=== PATIENT | female | born 1970 | race Caucasian/White ===

== ENCOUNTER 2017-03-27 12:16 | Emergency (ER) | payer SELFPAY ==
[~2017-03-27] VITALS: Ht 160 cm; Wt 60.0 kg
[2017-03-27 12:18] VITALS: BP 186/109; PULSE 116; RESP 28; TEMP 98; O2SAT 96
--- NOTE | 2017-03-27 12:31 | PD ---
Physical Exam Date Seen by Provider: Mar 27, 2017 Time Seen by Provider: 12:28 Data Data Last Documented VS Vital Signs Date Time Temp Pulse Resp B/P Pulse Ox O2 Delivery O2 Flow Rate FiO2 03/27/17 12:18 98.0 116 28 186/109 96 Room Air [facility] Supervised Visit with MARISEL: No Narrative Course 46 YO F with complaint of 10/10 cramping bilateral pelvic pain x 3 days. + vaginal discharge. + urinary odor. --vaginal bleeding. Vitals reviewed. Awaiting bed placement. Yanelis Cedeno Mar 27, 2017 12:31
[2017-03-27] MEDS ORDERED: SODIUM CHLOR 0.9% 1000 ML INJ 1,000 ML IV SCH (13:51)
[2017-03-27] MEDS ORDERED: MORPHINE SULFATE 4 MG/ML INJ IV PUSH ONE (14:00)
[2017-03-27] MEDS ORDERED: ONDANSETRON HCL 4 MG/2 ML VIAL IVP ONE (14:00)
--- NOTE | 2017-03-27 14:02 | PD ---
HPI Chief Complaint: Abdominal Pain Time Seen by Provider: 13:58 Travel History International Travel<30 days: No Contact w/Intl Traveler<30days: No Traveled to known affect area: No History of Present Illness HPI 46 yo female here for lower abdominal pain. has had this for three days. Odor on urine. Pelvic pain bilaterally. Severe 10/10. No history of surgeries. LMP was 6 years ago. No Vaginal bleeding. No BM issues. No nausea or vomit. No chest pain. Has not seen anybody for this. No allergies. Has not taken anything for this. Denies any sexual partners or STD. She is in menopause per patient. PFSH Past Medical History ?: Not LMP: 6 years ago Menopausal: Yes Past Surgical History Section: Yes Social History Alcohol Use: Yes Tobacco Use: Yes (pack a day) Substance Use: No Allergies-Medications (Allergen,Severity, Reaction): Coded Allergies: No Known Allergies (Unverified , 03/27/17) Reported Meds & Prescriptions Reported Meds & Active Scripts Active Potassium Chloride Liq (Potassium Chloride) 40 Meq/15 Ml Soln 50 Meq PO ONCE 1 Days Tramadol (Tramadol HCl) 50 Mg Tab 50 Mg PO Q6H PRN Keflex (Cephalexin) 500 Mg Cap 500 Mg PO Q12H Flagyl (Metronidazole) 500 Mg Tab 500 Mg PO BID 7 Days Review of Systems Except as stated in HPI: all other systems reviewed are Neg Physical Exam Narrative GENERAL: SKIN: Warm and dry. HEAD: Atraumatic. Normocephalic. EYES: Pupils equal and round. No scleral icterus. No injection or drainage. ENT: No nasal bleeding or discharge. Mucous membranes pink and moist. Tongue is midline, no uvula deviation. NECK: Trachea midline. No JVD. CARDIOVASCULAR: Regular rate and rhythm. RESPIRATORY: No accessory muscle use. Clear to auscultation. Breath sounds equal bilaterally. GASTROINTESTINAL: Abdomen soft, tender in the pelvic area only, nondistended. Hepatic and splenic margins not palpable. Pelvic exam: done with female nurse present shows whitish smelly discharge with vaginal atrophy but no masses or lymphadenopathy. No cervix motion tenderness. No adnexal tenderness. MUSCULOSKELETAL: Extremities without clubbing, cyanosis, or edema. No obvious deformities. Full ROM of the upper and lower extremities bilaterally. 2+ pulses bilaterally. NEUROLOGICAL: Awake and alert. No obvious cranial nerve deficits. Motor grossly within normal limits. Five out of 5 muscle strength in the arms and legs. Normal speech. PSYCHIATRIC: Appropriate mood and affect; insight and judgment normal. Data Data Last Documented VS Vital Signs Date Time Temp Pulse Resp B/P Pulse Ox O2 Delivery O2 Flow Rate FiO2 03/27/17 12:18 98.0 116 28 186/109 96 Room Air Orders Complete Blood Count With Diff (03/27/17 13:51) Basic Metabolic Panel (Bmp) (03/27/17 13:51) Gc And Chlamydia Pcr (03/27/17 13:51) Wet Prep Profile (03/27/17 13:51) Urinalysis - C+S If Indicated (03/27/17 13:51) Iv Access Insert/Monitor (03/27/17 13:51) Ondansetron Inj (Zofran Inj) (03/27/17 14:00) Morphine Inj (Morphine Inj) (03/27/17 14:00) Sodium Chlor 0.9% 1000 Ml Inj (Ns 1000 M (03/27/17 13:51) Potassium Chloride (Kcl) (03/27/17 15:15) Potassium Chloride (Kcl) (03/27/17 15:30) Labs Laboratory Tests Test 03/27/17 14:10 White Blood Count 7.8 TH/MM3 Red Blood Count 3.70 MIL/MM3 Hemoglobin 15.6 GM/DL Hematocrit 44.8 % Mean Corpuscular Volume 121.0 FL Mean Corpuscular Hemoglobin 42.1 PG Mean Corpuscular Hemoglobin 34.8 % Concent Red Cell Distribution Width 19.1 % Platelet Count 242 TH/MM3 Mean Platelet Volume 8.6 FL Neutrophils (%) (Auto) 55.7 % Lymphocytes (%) (Auto) 28.7 % Monocytes (%) (Auto) 12.1 % Eosinophils (%) (Auto) 2.8 % Basophils (%) (Auto) 0.7 % Neutrophils # (Auto) 4.3 TH/MM3 Lymphocytes # (Auto) 2.2 TH/MM3 Monocytes # (Auto) 0.9 TH/MM3 Eosinophils # (Auto) 0.2 TH/MM3 Basophils # (Auto) 0.1 TH/MM3 CBC Comment DIFF FINAL Differential Comment Clue Cells (Wet Prep) PRESENT Vaginal Trichomonas (Wet Prep) NONE SEEN Vaginal Yeast (Wet Prep) NONE SEEN Sodium Level 140 MEQ/L Potassium Level 2.6 MEQ/L Chloride Level 97 MEQ/L Carbon Dioxide Level 36.4 MEQ/L Anion Gap 7 MEQ/L Blood Urea Nitrogen 3 MG/DL Creatinine 0.43 MG/DL Estimat Glomerular Filtration 157 ML/MIN Rate Random Glucose 119 MG/DL Calcium Level 8.6 MG/DL [facility] Medical Decision Making Medical Screen Exam Complete: Yes Emergency Medical Condition: Yes Medical Record Reviewed: Yes Interpretation(s) CBC & BMP Diagram 03/27/17 14:10 wet prep positive for clue cells UA positive for UTI Differential Diagnosis pelvic pain vs PID vs UTI vs vaginitis vs vaginal discharge vs cystitis vs pyelonephritis Narrative Course 46 yo female here for pelvic pain. Unclear etiology. Pelvic recommended. Patient agrees with labs and pelvic exam. Labs and exam shows vaginal discharge but no cervical tenderness. UTI. low potassium noted. Case was discussed in my attending who recommends replenishing here with 50 mEq of potassium by mouth as well as 50 mEq of PO potassium to take tomorrow at home. patient will be treated with flagyl and keflex for her infections. Tramadol as well for pain. She was instructed to follow up with PCP. See ED if worst. Diagnosis Primary Impression: BV (bacterial vaginosis) Additional Impressions: UTI (urinary tract infection) Qualified Code: N30.00 - Acute cystitis without hematuria Hypokalemia Patient Instructions: General Instructions, Narcotic given in the ED Additional Instructions: Take medications as prescribed. Follow-up with PCP. See ED for any worsening symptoms. Do not drink or drive while taking pain medication. Apply ice or heat as needed for pain Med/Other Pt SpecificInfo: Prescription(s) given Scripts Potassium Chloride Liq 40 Meq/15 Ml Soln50 Meq PO ONCE 1 Day Ref 0 Prov:Craig Gonsales MD 03/27/17 Tramadol 50 Mg Tab50 Mg PO Q6H PRN (PAIN) #14 TAB Ref 0 Prov:Craig Gonsales MD 03/27/17 Cephalexin (Keflex)500 Mg [id number] Mg PO Q12H #10 CAP Ref 0 Prov:Craig Gonsales MD 03/27/17 Metronidazole (Flagyl)500 Mg [id number] Mg PO BID 7 Days Ref 0 Prov:Craig Gonsales MD 03/27/17 Disposition: 01 DISCHARGE HOME Condition: Stable Eris Hall Mar 27, 2017 14:02
[2017-03-27 14:35] LABS: AUTOMATED NEUTROPHIL # 4.3 TH/MM3 (1.8-7.7); BASOPHIL # 0.1 TH/MM3 (0-0.2); BASOPHIL % 0.7 % (0.0-2.0); EOSINOPHIL # 0.2 TH/MM3 (0-0.4); EOSINOPHIL % 2.8 % (0.0-4.0); HEMATOCRIT 44.8 % (35.0-46.0); HEMO FLAGS DIFF FINAL; LYMPH % 28.7 % (9.0-44.0); LYMPHOCYTE # 2.2 TH/MM3 (1.0-4.8); MEAN CORPUSCULAR HEMOGLOBIN 42.1 PG (27.0-34.0); MEAN CORPUSCULAR HGB CONC 34.8 % (32.0-36.0); MONO % 12.1 % (0.0-8.0); NEUT % 55.7 % (16.0-70.0); PLATELET COUNT 242 TH/MM3 (150-450); RED CELL DISTRIBUTION WIDTH 19.1 % (11.6-17.2); WHITE BLOOD COUNT 7.8 TH/MM3 (4.0-11.0)
[2017-03-27 15:04] LABS: BICARBONATE 36.4 MEQ/L (21.0-32.0)
[2017-03-27] MEDS ORDERED: TRAM50TA PO (15:05)
[2017-03-27] MEDS ORDERED: METR-1 PO (15:05)
[2017-03-27] MEDS ORDERED: CEPH-460 PO (15:05)
[2017-03-27 15:10] LABS: POTASSIUM 2.6 MEQ/L (3.5-5.1)
[2017-03-27] MEDS ORDERED: POTASSIUM CHLORIDE 20 MEQ CONTROLLED RELEASE TAB PO ONE (15:15)
[2017-03-27] MEDS ORDERED: POTA10LI10 PO (15:16)
[2017-03-27] MEDS ORDERED: POTASSIUM CHLORIDE 10 MEQ CONTROLLED RELEASE TAB PO ONE (15:30)
[2017-03-27 16:18] LABS: CHLAMYDIA PCR NOT DETECTED (NOT DETECT); NEISSERIA PCR NOT DETECTED (NOT DETECT)
[2017-03-27 16:33] LABS: BACTERIA, URINE MANY /hpf; BLOOD, URINE NEG (NEG); COMMENT (UR) CULTURE INDICATED; CULTURE IF INDICATED CULTURE INDICATED; GLUCOSE,URINE NEG (NEG); HYALINE CAST, URINE 1 /lpf (RARE); KETONE, URINE NEG (NEG); MUCUS URINE FEW /lpf (OCC); NITRITE,URINE NEG (NEG); PH, URINE 7.5 (5.0-8.5); SQUAMOUS EPITHELIAL CELL URINE 1 /hpf (0-5); URINE COLOR YELLOW (YELLW/STRAW)
== END 2017-03-27 17:49 | disposition home or self-care (01) ==
LOC: NEPD 12:16
DX: N76.0 Acute vaginitis (principal); N39.0 Urinary tract infection, site not specified; B96.20 Unspecified Escherichia coli [E. coli] as the cause of diseases classified elsewhere; F17.210 Nicotine dependence, cigarettes, uncomplicated
CPT/HCPCS: 80048; 81001; 85025; 87077; 87086; 87186; 87210; 87491; 87591; 96374; 96375; 99284; J2270; J2405; J7030

== ENCOUNTER 2017-04-02 11:41 | Emergency (ER) | payer SELFPAY ==
[~2017-04-02] VITALS: Ht 160 cm; Wt 62.0 kg
[~2017-04-02 11:41] MED LIST: CEPH-460 PO; METR-1 PO; POTA10LI10 PO; TRAM50TA PO
[2017-04-02 11:44] VITALS: BP 162/101; PULSE 108; RESP 20; TEMP 98.6; O2SAT 96
--- NOTE | 2017-04-02 11:48 | PD ---
Physical Exam Time Seen by Provider: 11:46 Narrative 46yo F c/o vomiting since Thursday. Cannot keep anything down. Reports lower abd pain. Currently on antibx for UTI and bacterial vaginosis. Taking nitrofurantoin andf Flagyl. Patient seen in triage. VS reviewed. Awaiting bed placement. Data Data Last Documented VS Vital Signs Date Time Temp Pulse Resp B/P Pulse Ox O2 Delivery O2 Flow Rate FiO2 04/02/17 11:44 98.6 108 20 162/101 96 Room Air MDM Supervised Visit with MARISEL: Mar Zimmerman Apr 02, 2017 11:48
[2017-04-02 13:07] LABS: AUTOMATED NEUTROPHIL # 4.9 TH/MM3 (1.8-7.7); BASOPHIL % 0.5 % (0.0-2.0); EOSINOPHIL % 0.7 % (0.0-4.0); HEMATOCRIT 45.6 % (35.0-46.0); HEMO FLAGS DIFF FINAL; LYMPH % 15.4 % (9.0-44.0); MEAN CORPUSCULAR HEMOGLOBIN 42.3 PG (27.0-34.0); MEAN CORPUSCULAR HGB CONC 34.4 % (32.0-36.0); MONO % 5.8 % (0.0-8.0); NEUT % 77.6 % (16.0-70.0); PLATELET COUNT 107 TH/MM3 (150-450); RED BLOOD COUNT 3.71 MIL/MM3 (4.00-5.30); RED CELL DISTRIBUTION WIDTH 18.7 % (11.6-17.2); WHITE BLOOD COUNT 6.3 TH/MM3 (4.0-11.0)
[2017-04-02 13:24] LABS: ALT (GPT) 133 U/L (10-53)
[2017-04-02 13:26] LABS: ALKALINE PHOSPHATASE 261 U/L (45-117); TOTAL BILIRUBIN ADULT 3.6 MG/DL (0.2-1.0)
[2017-04-02 13:27] LABS: ANION GAP 11 MEQ/L (5-15); AST (GOT) 285 U/L (15-37); BICARBONATE 34.6 MEQ/L (21.0-32.0); BLOOD UREA NITROGEN 5 MG/DL (7-18); CHLORIDE 90 MEQ/L (98-107); GLOMERULAR FILTRATION RATE 126 ML/MIN (>89); POTASSIUM 3.8 MEQ/L (3.5-5.1); SODIUM (NA) 136 MEQ/L (136-145)
[2017-04-02 13:47] LABS: BACTERIA, URINE OCC /hpf; BLOOD, URINE NEG (NEG); COMMENT (UR) CULTURE INDICATED; CULTURE IF INDICATED CULTURE INDICATED; GLUCOSE,URINE NEG (NEG); HYALINE CAST, URINE 8 /lpf (RARE); KETONE, URINE 10 mg/dL (NEG); MUCUS URINE MANY /lpf (OCC); NITRITE,URINE NEG (NEG); SQUAMOUS EPITHELIAL CELL URINE 42 /hpf (0-5)
[2017-04-02] MEDS ORDERED: ONDANSETRON HCL 4 MG/2 ML VIAL IV PUSH ONE (14:00)
--- NOTE | 2017-04-02 14:00 | PD ---
HPI Chief Complaint: GI Complaint Time Seen by Provider: 13:49 Travel History International Travel<30 days: No Contact w/Intl Traveler<30days: No Traveled to known affect area: No History of Present Illness HPI Patient is a 46-year-old female presents emergency department for nausea vomiting and dizziness. Patient states that she was here a few days ago and started on an antibiotic for urinary tract infection, they then called her to change her antibiotics to start her on Flagyl. She states since that time she' s been having some nausea and vomiting some generalized weakness. She presents today for a repeat evaluation. She denies any fevers diarrhea blood in the emesis blood in the stool. Denies any constipation. Denies any vaginal bleeding or vaginal discharge at this time. [facility] Past Medical History Menopausal: Yes Past Surgical History Section: Yes Social History Alcohol Use: Yes Tobacco Use: Yes (pack a day) Substance Use: No Allergies-Medications (Allergen,Severity, Reaction): Coded Allergies: No Known Allergies (Unverified , 04/02/17) Reported Meds & Prescriptions Reported Meds & Active Scripts Active Roxicodone (Oxycodone HCl) 5 Mg Tab 5 Mg PO Q6H PRN Zofran Odt (Ondansetron Odt) 4 Mg Tab 4 Mg SL Q6HR PRN Tramadol (Tramadol HCl) 50 Mg Tab 50 Mg PO Q6H PRN Flagyl (Metronidazole) 500 Mg Tab 500 Mg PO BID 7 Days Review of Systems Except as stated in HPI: all other systems reviewed are Neg Physical Exam Narrative GENERAL: Well-developed well-nourished no apparent distress SKIN: Focused skin assessment warm/dry. HEAD: Atraumatic. Normocephalic. EYES: Pupils equal and round. No scleral icterus. No injection or drainage. ENT: No nasal bleeding or discharge. Mucous membranes pink and moist. NECK: Trachea midline. No JVD. CARDIOVASCULAR: Regular rate and rhythm. No murmur appreciated. RESPIRATORY: No accessory muscle use. Clear to auscultation. Breath sounds equal bilaterally. GASTROINTESTINAL: Abdomen soft, non-tender, nondistended. Hepatic and splenic margins not palpable. MUSCULOSKELETAL: No obvious deformities. No clubbing. No cyanosis. No edema. NEUROLOGICAL: Awake and alert. No obvious cranial nerve deficits. Motor grossly within normal limits. Normal speech. PSYCHIATRIC: Appropriate mood and affect; insight and judgment normal. Data Data Last Documented VS Vital Signs Date Time Temp Pulse Resp B/P Pulse Ox O2 Delivery O2 Flow Rate FiO2 04/02/17 16:06 95 20 145/92 96 Room Air 04/02/17 11:44 98.6 Orders Complete Blood Count With Diff (04/02/17 11:52) Comprehensive Metabolic Panel (04/02/17 11:52) Urinalysis - C+S If Indicated (04/02/17 11:52) Iv Access Insert/Monitor (04/02/17 11:52) Oxygen Administration (04/02/17 11:52) Oximetry (04/02/17 11:52) Lipase (04/02/17 11:52) Act Partial Throm Time (Ptt) (04/02/17 13:59) Prothrombin Time / Inr (Pt) (04/02/17 13:59) Ondansetron Inj (Zofran Inj) (04/02/17 14:00) Urine Culture (04/02/17 12:45) Ct Abd/Pel W Iv Contrast(Rout) (04/02/17 ) Ed Urine Pregnancytest Poc (04/02/17 14:42) Iohexol 350 Inj (Omnipaque 350 Inj) (04/02/17 15:28) Labs Laboratory Tests Test 04/02/17 04/02/17 12:45 14:15 White Blood Count 6.3 TH/MM3 Red Blood Count 3.71 MIL/MM3 Hemoglobin 15.7 GM/DL Hematocrit 45.6 % Mean Corpuscular Volume 123.0 FL Mean Corpuscular Hemoglobin 42.3 PG Mean Corpuscular Hemoglobin 34.4 % Concent Red Cell Distribution Width 18.7 % Platelet Count 107 TH/MM3 Mean Platelet Volume 9.2 FL Neutrophils (%) (Auto) 77.6 % Lymphocytes (%) (Auto) 15.4 % Monocytes (%) (Auto) 5.8 % Eosinophils (%) (Auto) 0.7 % Basophils (%) (Auto) 0.5 % Neutrophils # (Auto) 4.9 TH/MM3 Lymphocytes # (Auto) 1.0 TH/MM3 Monocytes # (Auto) 0.4 TH/MM3 Eosinophils # (Auto) 0.0 TH/MM3 Basophils # (Auto) 0.0 TH/MM3 CBC Comment DIFF FINAL Differential Comment Urine Color DARK-BROWN Urine Turbidity CLOUDY Urine pH 7.0 Urine Specific [place] 1.030 Urine Protein 300 mg/dL Urine Glucose (UA) NEG mg/dL Urine Ketones 10 mg/dL Urine Occult Blood NEG Urine Nitrite NEG Urine Bilirubin SMALL Urine Urobilinogen 4.0 MG/DL Urine Leukocyte Esterase MOD Urine RBC 6 /hpf Urine WBC 29 /hpf Urine Squamous Epithelial 42 /hpf Cells Urine Amorphous Sediment RARE Urine Bacteria OCC /hpf Urine Hyaline Casts 8 /lpf Urine Mucus MANY /lpf Microscopic Urinalysis Comment CULTURE INDICATED Sodium Level 136 MEQ/L Potassium Level 3.8 MEQ/L Chloride Level 90 MEQ/L Carbon Dioxide Level 34.6 MEQ/L Anion Gap 11 MEQ/L Blood Urea Nitrogen 5 MG/DL Creatinine 0.52 MG/DL Estimat Glomerular Filtration 126 ML/MIN Rate Random Glucose 89 MG/DL Calcium Level 8.6 MG/DL Total Bilirubin 3.6 MG/DL Aspartate Amino Transf 285 U/L (AST/SGOT) Alanine Aminotransferase 133 U/L (ALT/SGPT) Alkaline Phosphatase 261 U/L Total Protein 7.6 GM/DL Albumin 2.9 GM/DL Lipase 142 U/L Prothrombin Time 13.2 SEC Prothromb Time International 1.2 RATIO Ratio Activated Partial 27.3 SEC Thromboplast Time MDM Medical Decision Making Medical Screen Exam Complete: Yes Emergency Medical Condition: Yes Medical Record Reviewed: Yes Differential Diagnosis Gastritis, gastric enteritis, diverticulosis, kidney stone, urinary tract infection. Narrative Course Patient was roomed in the emergency department, review the records show that she was initially started on Keflex and this was changed to Flagyl and Cipro. This may be partly causing the patient's nausea and vomiting. Given this is second evaluation think further workup is warranted patient and labs have been ordered. Labs do show transaminitis with a minimal elevation of bilirubin. Patient adamantly denies drinking but states that she has not ever been tested for hepatitis. Given the transaminitis CAT scan was ordered on top shows normal gallbladder with no liver masses but incidentally does show a kidney stone and some mild diverticulitis. These findings were discussed with the patient and unfortunately now she has urinary tract infection a candidal infection transaminitis a kidney stone as well as diverticulitis. Referrals are made to the specialists including GI and urology and recommended the patient also established with a primary care physician or the [facility]. She appears well and in no obvious distress and is stable for discharge and outpatient workup at this time. Diagnosis Primary Impression: Diverticulitis Additional Impressions: BV (bacterial vaginosis) UTI (urinary tract infection) Kidney stone Transaminitis Referrals: Ivan Woods MD, Hassan MD [facility] Additional Instructions: No alcohol, no Tylenol and to you follow-up with a applications coordinator, also follow up with the [facility]. Med/Other Pt SpecificInfo: Prescription(s) given Scripts Oxycodone (Roxicodone)5 Mg Tab5 Mg PO Q6H PRN (PAIN) #12 TAB Ref 0 Prov:Oz Emmanuel MD 04/02/17 Ondansetron Odt (Zofran Odt)4 Mg Tab4 Mg SL Q6HR PRN (Nausea/Vomiting) #30 TAB Ref 0 Prov:Oz Emmanuel MD 04/02/17 Disposition: 01 DISCHARGE HOME Condition: Stable Oz Emmanuel MD Apr 02, 2017 14:00
[2017-04-02 14:01] LABS: URINE COLOR DARK-BROWN (YELLW/STRAW)
[2017-04-02 14:40] LABS: APTT (PATIENT) 27.3 SEC (24.3-30.1); INTERNATIONAL NORMALIZED RATIO 1.2 RATIO; PROTHROMBIN TIME - PATIENT 13.2 SEC (9.8-11.6)
[2017-04-02] MEDS ORDERED: IOHEXOL 350 MG/ML 10 ML VIAL (for RAD DIAG) IV ONE (15:28)
--- NOTE | 2017-04-02 15:53 | RADRPT ---
EXAM DATE/TIME: 04/02/2017 15:17 [facility] COMPARISON: No previous studies available for comparison. INDICATIONS : Left lower abdominal pain, vomiting. IV CONTRAST: 97 cc Omnipaque 350 (iohexol) IV ORAL CONTRAST: No oral contrast ingested. RADIATION DOSE: 8.11 CTDIvol (mGy) MEDICAL HISTORY : None SURGICAL HISTORY : section. ENCOUNTER: Initial ACUITY: 3 days PAIN SCALE: 5/10 LOCATION: Left lower quadrant abdomen TECHNIQUE: Volumetric scanning of the abdomen and pelvis was performed. Using automated exposure control and ad justment of the mA and/or kV according to patient size, radiation dose was kept as low as reasonably achievable to obtain optimal diagnostic quality images. FINDINGS: LOWER LUNGS: The visualized lower lungs are clear. LIVER: The liver is enlarged and demonstrates diffuse fatty infiltration. There is no dilation of the bilia ry tree. No calcified gallstones. SPLEEN: Normal size without lesion. PANCREAS: Within normal limits. KIDNEYS: Normal in size and shape. There is no mass or hydronephrosis. There is a tiny 4 mm calcified nonobst ructing right renal pelvic stone. ADRENAL GLANDS: Within normal limits. VASCULAR: There is no aortic aneurysm. BOWEL/MESENTERY: Minimal wall thickening and pericolic streakiness is noted involving the distal descending and proxim al sigmoid colon suggesting mild acute diverticulitis. Clinical correlation is recommended. No raymond lic abscess is noted. ABDOMINAL WALL: Within normal limits. RETROPERITONEUM: There is no lymphadenopathy. BLADDER: No wall thickening or mass. REPRODUCTIVE: Within normal limits. INGUINAL: There is no lymphadenopathy or hernia. MUSCULOSKELETAL: Mild scoliosis and degenerative changes involving the thoraco-lumbar spine. CONCLUSION: 1. Minimal wall thickening and pericolic streakiness is noted involving the distal descending and pro ximal sigmoid colon suggesting mild acute diverticulitis. Clinical correlation is recommended. No per icolic abscess is noted. 2. Enlarged fatty liver. 3. 4 mm calcified nonobstructing right renal calculus. 4. Mild scoliosis and degenerative changes involving the thoraco-lumbar spine. Oz Hull MD on April 02, 2017 at 15:36 Board Certified Radiologist. This report was verified electronically.
[2017-04-02] MEDS ORDERED: ULTR50TA5 PO (16:00)
[2017-04-02] MEDS ORDERED: ZOFR4TAB3 SL (16:00)
[2017-04-02 16:06] VITALS: BP 145/92; PULSE 95; RESP 20; O2SAT 96
[2017-04-02] MEDS ORDERED: NORC5TAB PO (16:06)
[2017-04-02] MEDS ORDERED: OXYC1TAB13 PO (16:09)
== END 2017-04-02 16:42 | disposition home or self-care (01) ==
LOC: NEPC 11:41
DX: K57.32 Diverticulitis of large intestine without perforation or abscess without bleeding (principal); N76.0 Acute vaginitis; B96.89 Other specified bacterial agents as the cause of diseases classified elsewhere; N20.0 Calculus of kidney; R74.0 Nonspecific elevation of levels of transaminase and lactic acid dehydrogenase [LDH]
CPT/HCPCS: 74177; 80053; 81001; 83690; 84703; 85025; 85610; 85730; 87086; 96374; 99285; J2405; Q9967

== ENCOUNTER 2017-09-13 14:28 | Emergency (ER) | payer SELFPAY ==
[~2017-09-13] VITALS: Ht 160 cm; Wt 80.0 kg
[~2017-09-13 14:28] MED LIST changes: -CEPH-460 PO; +OXYC1TAB13 PO; -POTA10LI10 PO; +ZOFR4TAB3 SL
[2017-09-13 14:29] VITALS: BP 150/80; PULSE 110; RESP 18; TEMP 98.5; O2SAT 99
--- NOTE | 2017-09-13 15:25 | PD ---
HPI Chief Complaint: Medical Clearance Time Seen by Provider: 15:17 Travel History International Travel<30 days: No Contact w/Intl Traveler<30days: No Traveled to known affect area: No History of Present Illness HPI 47-year-old female states over the past couple of days she has been numb from her upper abdomen down and has difficulty moving her legs. She states that she also feels swollen to her lower legs. She states she's having back pain. She states given her weakness in her legs she fell and hit her abdomen and head. She states that she has no other concurrent complaints at this time but it's hard to know since she can't feel anything. 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) Seizures: Yes ?: Not Menopausal: Yes : 1 Para: 1 Miscarriage: 0 : 0 Past Surgical History Surgical History: No Previous Surgery Section: Yes Social History Alcohol Use: No Tobacco Use: Yes (/2 ppd) Substance Use: No Allergies-Medications (Allergen,Severity, Reaction): Coded Allergies: latex (Verified Allergy, Intermediate, Ulcers, 09/13/17) blisters Reported Meds & Prescriptions Reported Meds & Active Scripts Active No Active Prescriptions or Reported Medications Review of Systems Except as stated in HPI: all other systems reviewed are Neg Physical Exam Narrative GENERAL: Well-nourished, well-developed patient. SKIN: Warm and dry. HEAD: Normocephalic and atraumatic. EYES: No injection or drainage. ENT: No nasal drainage noted. NECK: Supple, trachea midline. CARDIOVASCULAR: Regular rate and rhythm RESPIRATORY: Breath sounds equal bilaterally at apices. No accessory muscle use. GASTROINTESTINAL: Abdomen soft, diffusely tender, bruising noted to lower abdomen EXTREMITIES: 3+ pitting Edema noted to knees bilaterally, no calf pain BACK: Tender to upper lumbar spine area NEUROLOGICAL: Awake and alert. Patient can lift each leg but it drops after 1 second and she can only lift it a small amount. She states her entire abdomen and legs all the way around feels tingly and different. Data Data Last Documented VS Vital Signs Date Time Temp Pulse Resp B/P (MAP) Pulse Ox O2 Delivery O2 Flow Rate FiO2 09/13/17 15:43 98 Room Air 09/13/17 14:29 98.5 110 18 Orders Orders Complete Blood Count With Diff (09/13/17 15:20) Comprehensive Metabolic Panel (09/13/17 15:20) Urinalysis - C+S If Indicated (09/13/17 15:20) Lipase (09/13/17 15:20) Ct Abd/Pel W Iv Contrast(Rout) (09/13/17 ) Iv Access Insert/Monitor (09/13/17 15:20) Oximetry (09/13/17 15:20) B-Type Natriuretic Peptide (09/13/17 15:20) Act Partial Throm Time (Ptt) (09/13/17 15:20) Prothrombin Time / Inr (Pt) (09/13/17 15:20) Magnesium (Mg) (09/13/17 15:20) Ckmb (Isoenzyme) Profile (09/13/17 15:20) Troponin I (09/13/17 15:20) Electrocardiogram (09/13/17 15:20) Ecg Monitoring (09/13/17 15:20) Chest, Single Ap (09/13/17 15:20) Sodium Chloride 0.9% Flush (Ns Flush) (09/13/17 15:30) Mri T Spine W/O Contrast (09/13/17 ) Mri L Spine W/O Contrast (09/13/17 ) Ct Brain W/O Iv Contrast(Rout) (09/13/17 ) Iohexol 350 Inj (Omnipaque 350 Inj) (09/13/17 18:55) Labs Laboratory Tests Test 09/13/17 15:32 09/13/17 15:50 Urine Color YELLOW Urine Turbidity HAZY Urine pH 5.5 Urine Specific [place] 1.027 Urine Protein 30 mg/dL Urine Glucose (UA) NEG mg/dL Urine Ketones NEG mg/dL Urine Occult Blood NEG Urine Nitrite NEG Urine Bilirubin NEG Urine Urobilinogen 2.0 MG/DL Urine Leukocyte Esterase TRACE Urine RBC 1 /hpf Urine WBC 3 /hpf Urine Squamous Epithelial Cells 25 /hpf Urine Mucus FEW /lpf Microscopic Urinalysis Comment CULT NOT INDICATED White Blood Count 10.3 TH/MM3 Red Blood Count 2.70 MIL/MM3 Hemoglobin 11.0 GM/DL Hematocrit 32.4 % Mean Corpuscular Volume 119.8 FL Mean Corpuscular Hemoglobin 40.7 PG Mean Corpuscular Hemoglobin Concent 34.0 % Red Cell Distribution Width 16.1 % Platelet Count 326 TH/MM3 Mean Platelet Volume 9.3 FL Neutrophils (%) (Auto) 64.7 % Lymphocytes (%) (Auto) 19.2 % Monocytes (%) (Auto) 13.8 % Eosinophils (%) (Auto) 1.6 % Basophils (%) (Auto) 0.7 % Neutrophils # (Auto) 6.7 TH/MM3 Lymphocytes # (Auto) 2.0 TH/MM3 Monocytes # (Auto) 1.4 TH/MM3 Eosinophils # (Auto) 0.2 TH/MM3 Basophils # (Auto) 0.1 TH/MM3 CBC Comment DIFF FINAL Differential Comment Prothrombin Time 11.4 SEC Prothromb Time International Ratio 1.0 RATIO Activated Partial Thromboplast Time 28.6 SEC Blood Urea Nitrogen 2 MG/DL Creatinine 0.36 MG/DL Random Glucose 98 MG/DL Total Protein 7.4 GM/DL Albumin 2.2 GM/DL Calcium Level 8.6 MG/DL Magnesium Level 1.0 MG/DL Alkaline Phosphatase 282 U/L Aspartate Amino Transf (AST/SGOT) 102 U/L Alanine Aminotransferase (ALT/SGPT) 50 U/L Total Bilirubin 1.0 MG/DL Sodium Level 141 MEQ/L Potassium Level 3.2 MEQ/L Chloride Level 102 MEQ/L Carbon Dioxide Level 31.7 MEQ/L Anion Gap 7 MEQ/L Estimat Glomerular Filtration Rate 192 ML/MIN Total Creatine Kinase 18 U/L Troponin I LESS THAN 0.02 NG/ML B-Type Natriuretic Peptide 156 PG/ML Lipase 326 U/L MDM Medical Decision Making Medical Screen Exam Complete: Yes Emergency Medical Condition: Yes Medical Record Reviewed: Yes (past history confirmed) Interpretation(s) CBC & BMP Diagram 09/13/17 15:50 Total Protein 7.4, Albumin 2.2 L, Calcium Level 8.6, Magnesium Level 1.0 L, Alkaline Phosphatase 282 H, Aspartate Amino Transf (AST/SGOT) 102 H, Alanine Aminotransferase (ALT/SGPT) 50, Total Bilirubin 1.0 Differential Diagnosis Mass, disc disease, abdominal bleed, head bleed Narrative Course Will check blood work, urinalysis, imaging and monitor Physician Communication Physician Communication dr damon to follow imaging and reeval Scripts No Active Prescriptions or Reported Meds Liudmila Schmitt MD Sep 13, 2017 15:25
[2017-09-13] MEDS ORDERED: SODIUM CHLORIDE 0.9% FLUSH 10 ML FLUSH IVF PRN (15:30)
[2017-09-13 15:43] VITALS: O2SAT 98
--- NOTE | 2017-09-13 15:57 | RADRPT ---
EXAM DATE/TIME: 09/13/2017 15:45 [facility] COMPARISON: No previous studies available for comparison. INDICATIONS : Palpitations MEDICAL HISTORY : None. SURGICAL HISTORY : None. ENCOUNTER: Initial ACUITY: 4 - 6 days PAIN SCORE: 0/10 LOCATION: chest FINDINGS: A single view of the chest demonstrates the lungs to be symmetrically aerated without evidence of mas s, infiltrate or effusion. The cardiomediastinal contours are unremarkable. Osseous structures are intact. CONCLUSION: No acute disease. Evan Foley MD on September 13, 2017 at 15:54 Board Certified Radiologist. This report was verified electronically.
[2017-09-13 16:18] LABS: AUTOMATED NEUTROPHIL # 6.7 TH/MM3 (1.8-7.7); BASOPHIL # 0.1 TH/MM3 (0-0.2); BASOPHIL % 0.7 % (0.0-2.0); EOSINOPHIL # 0.2 TH/MM3 (0-0.4); EOSINOPHIL % 1.6 % (0.0-4.0); HEMATOCRIT 32.4 % (35.0-46.0); HEMO FLAGS DIFF FINAL; LYMPH % 19.2 % (9.0-44.0); MEAN CELL VOLUME 119.8 FL (80.0-100.0); MEAN CORPUSCULAR HEMOGLOBIN 40.7 PG (27.0-34.0); MONO % 13.8 % (0.0-8.0); NEUT % 64.7 % (16.0-70.0); PLATELET COUNT 326 TH/MM3 (150-450); RED CELL DISTRIBUTION WIDTH 16.1 % (11.6-17.2); WHITE BLOOD COUNT 10.3 TH/MM3 (4.0-11.0)
[2017-09-13 16:33] LABS: BLOOD, URINE NEG (NEG); COMMENT (UR) CULT NOT INDICATED; CULTURE IF INDICATED CULT NOT INDICATED; GLUCOSE,URINE NEG (NEG); KETONE, URINE NEG (NEG); MUCUS URINE FEW /lpf (OCC); NITRITE,URINE NEG (NEG); PH, URINE 5.5 (5.0-8.5); SQUAMOUS EPITHELIAL CELL URINE 25 /hpf (0-5); URINE COLOR YELLOW (YELLW/STRAW)
[2017-09-13 16:37] LABS: ALT (GPT) 50 U/L (10-53); ANION GAP 7 MEQ/L (5-15); AST (GOT) 102 U/L (15-37); BICARBONATE 31.7 MEQ/L (21.0-32.0); BLOOD UREA NITROGEN 2 MG/DL (7-18); CHLORIDE 102 MEQ/L (98-107); GLOMERULAR FILTRATION RATE 192 ML/MIN (>89); POTASSIUM 3.2 MEQ/L (3.5-5.1); SODIUM (NA) 141 MEQ/L (136-145)
[2017-09-13 16:42] LABS: ALKALINE PHOSPHATASE 282 U/L (45-117)
[2017-09-13 16:49] LABS: CREATINE KINASE 18 U/L (26-192)
[2017-09-13 17:10] LABS: APTT (PATIENT) 28.6 SEC (24.3-30.1); PROTHROMBIN TIME - PATIENT 11.4 SEC (9.8-11.6)
--- NOTE | 2017-09-13 18:43 | RADRPT ---
EXAM DATE/TIME: 09/13/2017 18:05 [facility] COMPARISON: No previous studies available for comparison. INDICATIONS : Inability to ambulate. MEDICAL HISTORY : Cirrhosis. SURGICAL HISTORY : section. ENCOUNTER: Initial ACUITY: 1 day PAIN SCORE: 5/10 LOCATION: Paraspinal TECHNIQUE: Multiplanar multisequence MRI of the thoracic spine was performed. FINDINGS: T1-T2: Normal. T2-T3: The thecal sac has a normal diameter. No evidence of disc bulge or protrusion. T3-T4: The thecal sac has a normal diameter. No evidence of disc bulge or protrusion. T4-T5: The thecal sac has a normal diameter. No evidence of disc bulge or protrusion. T5-T6: The thecal sac has a normal diameter. No evidence of disc bulge or protrusion. T6-T7: The thecal sac has a normal diameter. No evidence of disc bulge or protrusion. T7-T8: The thecal sac has a normal diameter. No evidence of disc bulge or protrusion. T8-T9: The thecal sac has a normal diameter. No evidence of disc bulge or protrusion. T9-T10: The thecal sac has a normal diameter. No evidence of disc bulge or protrusion. T10-T11: The thecal sac has a normal diameter. No evidence of disc bulge or protrusion. T11-T12: The thecal sac has a normal diameter. No evidence of disc bulge or protrusion. T12-L1: The thecal sac has a normal diameter. No evidence of disc bulge or protrusion. CONCLUSION: 1. No acute findings. Mild degenerative disc disease. No canal stenosis or discrete disc protrusions. Small Schmorl's node superior endplate T10. Evan Foley MD on September 13, 2017 at 18:38 Board Certified Radiologist. This report was verified electronically.
--- NOTE | 2017-09-13 18:53 | RADRPT ---
EXAM DATE/TIME: 09/13/2017 18:40 [facility] COMPARISON: No previous studies available for comparison. INDICATIONS : Fall onto head today. RADIATION DOSE: 55.33 CTDIvol (mGy) MEDICAL HISTORY : Seizures. Cirrhosis. deep vein thrombosis SURGICAL HISTORY : section. ENCOUNTER: Initial ACUITY: 1 day PAIN SCALE: 5/10 LOCATION: Bilateral head TECHNIQUE: Multiple contiguous axial images were obtained of the head. Using automated exposure control and adj ustment of the mA and/or kV according to patient size, radiation dose was kept as low as reasonably a chievable to obtain optimal diagnostic quality images. DICOM format image data is available electro nically for review and comparison. FINDINGS: CEREBRUM: The ventricles are normal for age. No evidence of midline shift, mass lesion, hemorrhage or acute in farction. No extra-axial fluid collections are seen. POSTERIOR FOSSA: The cerebellum and brainstem are intact. The 4th ventricle is midline. The cerebellopontine angle i s unremarkable. EXTRACRANIAL: The visualized portion of the orbits is intact. SKULL: The calvaria is intact. No evidence of skull fracture. CONCLUSION: Normal examination. Evan Foley MD on September 13, 2017 at 18:50 Board Certified Radiologist. This report was verified electronically.
--- NOTE | 2017-09-13 18:54 | RADRPT ---
EXAM DATE/TIME: 09/13/2017 18:05 [facility] COMPARISON: No previous studies available for comparison. INDICATIONS : Inability to ambulate. MEDICAL HISTORY : Cirrhosis. SURGICAL HISTORY : section. ENCOUNTER: Initial ACUITY: 1 day PAIN SCORE: 5/10 LOCATION: Paraspinal TECHNIQUE: Multiplanar multisequence MRI of the lumbar spine was performed without contrast. FINDINGS: The most caudal appearing lumbar vertebra is numbered as L5. VERTEBRAE: Homogeneous signal. Normal alignment. CONUS: Normal level and configuration. T12-L1: The thecal sac has a normal diameter. No evidence of disc bulge or protrusion. The neural foramina are patent bilaterally. L1-L2: The thecal sac has a normal diameter. No evidence of disc bulge or protrusion. The neural foramina are patent bilaterally. L2-L3: The thecal sac has a normal diameter. No evidence of disc bulge or protrusion. The neural foramina are patent bilaterally. L3-L4: The thecal sac has a normal diameter. No evidence of disc bulge or protrusion. The neural foramina are patent bilaterally. L4-L5: The thecal sac has a normal diameter. No evidence of disc bulge or protrusion. The neural foramina are patent bilaterally. L5-S1: The thecal sac has a normal diameter. No evidence of disc bulge or protrusion. The neural foramina are patent bilaterally. CONCLUSION: Normal examination for a patient of this age. Evan Foley MD on September 13, 2017 at 18:51 Board Certified Radiologist. This report was verified electronically.
[2017-09-13] MEDS ORDERED: IOHEXOL 350 MG/ML 10 ML VIAL (for RAD DIAG) IVCONTRAST ONE (18:55)
--- NOTE | 2017-09-13 19:07 | RADRPT ---
EXAM DATE/TIME: 09/13/2017 18:44 [facility] COMPARISON: CT ABDOMEN & PELVIS W CONTRAST, April 02, 2017, 15:17. INDICATIONS : Abdomen swelling and numbness for two days. IV CONTRAST: 88 cc Omnipaque 350 (iohexol) IV ORAL CONTRAST: No oral contrast ingested. RADIATION DOSE: 12.30 CTDIvol (mGy) MEDICAL HISTORY : Cirrhosis. Seizures. deep vein thrombosis SURGICAL HISTORY : section. ENCOUNTER: Initial ACUITY: 1 day PAIN SCALE: 0/10 LOCATION: Bilateral abdomen TECHNIQUE: Volumetric scanning of the abdomen and pelvis was performed. Using automated exposure control and ad justment of the mA and/or kV according to patient size, radiation dose was kept as low as reasonably achievable to obtain optimal diagnostic quality images. DICOM format image data is available electro nically for review and comparison. FINDINGS: Mild dependent atelectasis in the lungs. Diffuse fatty liver. Spleen, adrenals, kidneys and pancreas unremarkable. No calcified gallstones or ductal dilatation. No free fluid. No bowel obstruction. No adenopathy. There is mild anasarca. CONCLUSION: 1. Diffuse hepatic steatosis. Mild anasarca. No acute findings within the abdomen and pelvis. Evan Foley MD on September 13, 2017 at 19:01 Board Certified Radiologist. This report was verified electronically.
[2017-09-13] MEDS ORDERED: POTASSIUM CHLORIDE 10 MEQ CONTROLLED RELEASE TAB PO ONE (19:45)
[2017-09-13] MEDS ORDERED: FUROSEMIDE 20 MG TAB PO ONE (19:45)
[2017-09-13] MEDS ORDERED: POTA1TAB4 PO (20:05)
[2017-09-13] MEDS ORDERED: FURO1TAB62 PO ×2 (20:05→20:07)
--- NOTE | 2017-09-13 20:07 | PD ---
Physical Exam Narrative Patient signed out to me by Dr. Schmitt. Please see her documentation for complete details. Briefly, patient came in due swelling and pain. She says that she has had numbness in her feet and hands since March, but this seems to be getting worse. She was concerned that the swelling was going to her heart and this scared her. She says she plans to follow with the [facility]. She tried to go to [place] before, but did not have a job. Now that she is employed, she can be seen there. Exam shows edema of both lower extremities. She has good motor strength in her extremities. Data Data Last Documented VS Vital Signs Date Time Temp Pulse Resp B/P (MAP) Pulse Ox O2 Delivery O2 Flow Rate FiO2 09/13/17 15:43 98 Room Air 09/13/17 14:29 98.5 110 18 Orders Orders Complete Blood Count With Diff (09/13/17 15:20) Comprehensive Metabolic Panel (09/13/17 15:20) Urinalysis - C+S If Indicated (09/13/17 15:20) Lipase (09/13/17 15:20) Ct Abd/Pel W Iv Contrast(Rout) (09/13/17 ) Iv Access Insert/Monitor (09/13/17 15:20) Oximetry (09/13/17 15:20) B-Type Natriuretic Peptide (09/13/17 15:20) Act Partial Throm Time (Ptt) (09/13/17 15:20) Prothrombin Time / Inr (Pt) (09/13/17 15:20) Magnesium (Mg) (09/13/17 15:20) Ckmb (Isoenzyme) Profile (09/13/17 15:20) Troponin I (09/13/17 15:20) Electrocardiogram (09/13/17 15:20) Ecg Monitoring (09/13/17 15:20) Chest, Single Ap (09/13/17 15:20) Sodium Chloride 0.9% Flush (Ns Flush) (09/13/17 15:30) Mri T Spine W/O Contrast (09/13/17 ) Mri L Spine W/O Contrast (09/13/17 ) Ct Brain W/O Iv Contrast(Rout) (09/13/17 ) Iohexol 350 Inj (Omnipaque 350 Inj) (09/13/17 18:55) Furosemide (Lasix) (09/13/17 19:45) Potassium Chloride (Kcl) (09/13/17 19:45) Labs Laboratory Tests Test 09/13/17 15:32 09/13/17 15:50 Urine Color YELLOW Urine Turbidity HAZY Urine pH 5.5 Urine Specific [place] 1.027 Urine Protein 30 mg/dL Urine Glucose (UA) NEG mg/dL Urine Ketones NEG mg/dL Urine Occult Blood NEG Urine Nitrite NEG Urine Bilirubin NEG Urine Urobilinogen 2.0 MG/DL Urine Leukocyte Esterase TRACE Urine RBC 1 /hpf Urine WBC 3 /hpf Urine Squamous Epithelial Cells 25 /hpf Urine Mucus FEW /lpf Microscopic Urinalysis Comment CULT NOT INDICATED White Blood Count 10.3 TH/MM3 Red Blood Count 2.70 MIL/MM3 Hemoglobin 11.0 GM/DL Hematocrit 32.4 % Mean Corpuscular Volume 119.8 FL Mean Corpuscular Hemoglobin 40.7 PG Mean Corpuscular Hemoglobin Concent 34.0 % Red Cell Distribution Width 16.1 % Platelet Count 326 TH/MM3 Mean Platelet Volume 9.3 FL Neutrophils (%) (Auto) 64.7 % Lymphocytes (%) (Auto) 19.2 % Monocytes (%) (Auto) 13.8 % Eosinophils (%) (Auto) 1.6 % Basophils (%) (Auto) 0.7 % Neutrophils # (Auto) 6.7 TH/MM3 Lymphocytes # (Auto) 2.0 TH/MM3 Monocytes # (Auto) 1.4 TH/MM3 Eosinophils # (Auto) 0.2 TH/MM3 Basophils # (Auto) 0.1 TH/MM3 CBC Comment DIFF FINAL Differential Comment Prothrombin Time 11.4 SEC Prothromb Time International Ratio 1.0 RATIO Activated Partial Thromboplast Time 28.6 SEC Blood Urea Nitrogen 2 MG/DL Creatinine 0.36 MG/DL Random Glucose 98 MG/DL Total Protein 7.4 GM/DL Albumin 2.2 GM/DL Calcium Level 8.6 MG/DL Magnesium Level 1.0 MG/DL Alkaline Phosphatase 282 U/L Aspartate Amino Transf (AST/SGOT) 102 U/L Alanine Aminotransferase (ALT/SGPT) 50 U/L Total Bilirubin 1.0 MG/DL Sodium Level 141 MEQ/L Potassium Level 3.2 MEQ/L Chloride Level 102 MEQ/L Carbon Dioxide Level 31.7 MEQ/L Anion Gap 7 MEQ/L Estimat Glomerular Filtration Rate 192 ML/MIN Total Creatine Kinase 18 U/L Troponin I LESS THAN 0.02 NG/ML B-Type Natriuretic Peptide 156 PG/ML Lipase 326 U/L MDM Supervised Visit with MARISEL: No Narrative Course MRI of the lumbar and thoracic spine was performed and shows no spinal cord issues. CT abd/pelvis shows anasarca, no other acute findings. Patient describes her numbness as a "pins and needles" sensation. It sounds like she may be experiencing neuropathy. Patient offered admission, but she does not want to stay at this time. She is given a dose of Lasix and potassium and advised to follow up at the [facility] as planned. Advised to return at any time for any worsening symptoms. Diagnosis Primary Impression: Edema Qualified Codes: R60.9 - Edema, unspecified Additional Impression: Hypokalemia Patient Instructions: Edema (ED), General Instructions, Hypokalemia (ED) Additional Instruction: Take the Lasix to help with swelling. When you take a Lasix, take a potassium pill as well. Follow up with the [facility]. Return to the ED as needed for any worsening symptoms. Scripts Furosemide (Lasix) 20 Mg Tab 20 MG PO DAILY, #14 TAB 0 Refills Prov: Maty Powell MD 09/13/17 Potassium Chloride ER (K-Tab) 20 Meq Tab 20 MEQ PO DAILY for Electrolyte Replacement, #14 TAB 0 Refills Prov: Maty Powell MD 09/13/17 Disposition: 01 DISCHARGE HOME Condition: Stable Maty Powell MD Sep 13, 2017 20:07
--- NOTE | 2017-09-13 20:51 | EKG ---
Date Performed: 09/13/2017 Time Performed: 15:37:16 PTAGE: 47 years EKG: Sinus rhythm NORMAL ECG NO PREVIOUS TRACING DOCTOR: Ezequiel Wright Interpretating Date/Time 09/13/2017 20:50:10
== END 2017-09-13 20:40 | disposition home or self-care (01) ==
LOC: NEPE 14:28
DX: R60.1 Generalized edema (principal); E87.6 Hypokalemia; R20.0 Anesthesia of skin; M54.9 Dorsalgia, unspecified; F17.200 Nicotine dependence, unspecified, uncomplicated; K74.60 Unspecified cirrhosis of liver
CPT/HCPCS: 70450; 71010; 72146; 72148; 74177; 80053; 81001; 82550; 83690; 83735; 83880; 84484; 85025; 85610; 85730; 93005; 99285; Q9967

== ENCOUNTER 2017-09-25 10:20 | Inpatient (IN) | payer SELFPAY ==
[~2017-09-25] VITALS: Ht 160 cm; Wt 67.6 kg
[~2017-09-25 10:20] MED LIST changes: +FURO1TAB62 PO; -METR-1 PO; -OXYC1TAB13 PO; +POTA1TAB4 PO; -TRAM50TA PO; -ZOFR4TAB3 SL
[2017-09-25 10:22] VITALS: BP 176/74; PULSE 125; RESP 20; TEMP 98.1; O2SAT 98
[2017-09-25] MEDS ORDERED: SODIUM CHLORIDE 0.9% FLUSH 10 ML FLUSH IVF PRN (10:45)
--- NOTE | 2017-09-25 10:59 | PD ---
HPI Chief Complaint: General Weakness Time Seen by Provider: 10:32 Travel History International Travel<30 days: No Contact w/Intl Traveler<30days: No Traveled to known affect area: No History of Present Illness HPI This is a 47-year-old female who presents to the emergency department sent in by her primary care clinic with increasing malaise and weakness. The patient has been feeling weak ever since March she says that over the past months she's been having difficulty walking and she's been falling a lot. Her weakness is constant mostly in her legs, severe and she has a resting tremor. She also has decreased sensation in her arms and hands and feels numbness and tingling. She says her abdomen is more distended. She's been told in the past that she has cirrhosis. She did have a period in her life when she was drinking every day. Currently she says she drinks 2-3 times a week usually a glass of wine with her friends. She has no other known medical problems but just recently established with primary care. [facility] Past Medical History Cirrhosis: Yes Diminished Hearing: No Deep Vein Thrombosis: Yes (left upper arm) Seizures: Yes Tetanus Vaccination: > 5 Years Influenza Vaccination: No ?: Not Menopausal: Yes : 1 Para: 1 Miscarriage: 0 : 0 Past Surgical History Section: Yes Social History Alcohol Use: Yes (etoh abuse ) Tobacco Use: Yes (1/2 ppd) Substance Use: No Allergies-Medications (Allergen,Severity, Reaction): Coded Allergies: latex (Verified Allergy, Intermediate, Ulcers, 09/25/17) blisters Reported Meds & Prescriptions Reported Meds & Active Scripts Active No Active Prescriptions or Reported Medications Review of Systems Except as stated in HPI: all other systems reviewed are Neg Physical Exam Narrative GENERAL:Well appearing, no acute distress SKIN: erythema of the bilateral lower extremities, skin tears at different stages of healing on the arms HEAD: Atraumatic. Normocephalic. EYES: Pupils equal and round. No injection or drainage. ENT: Dry mucous membranes NECK: Trachea midline. CARDIOVASCULAR: Regular rate and rhythm. No murmur appreciated. RESPIRATORY: Clear to auscultation. Breath sounds equal bilaterally. GASTROINTESTINAL: Abdomen soft, hepatomegaly, diffuse mild tenderness to palpation of the abdomen MUSCULOSKELETAL: No obvious deformities. NEUROLOGICAL: Awake and alert. No obvious cranial nerve deficits. 4 out of 5 strength in the bilateral upper and lower extremities. PSYCHIATRIC: Appropriate mood and affect; insight and judgment normal. Data Data Last Documented VS Vital Signs Date Time Temp Pulse Resp B/P (MAP) Pulse Ox O2 Delivery O2 Flow Rate FiO2 09/25/17 12:52 107 20 111/64 (80) 96 Room Air 09/25/17 10:22 98.1 Orders Orders Complete Blood Count With Diff (09/25/17 10:44) Comprehensive Metabolic Panel (09/25/17 10:44) Ammonia (09/25/17 10:44) Prothrombin Time / Inr (Pt) (09/25/17 10:44) Act Partial Throm Time (Ptt) (09/25/17 10:44) Alcohol (Ethanol) (09/25/17 10:44) Urinalysis - C+S If Indicated (09/25/17 10:44) Ecg Monitoring (09/25/17 10:44) Iv Access Insert/Monitor (09/25/17 10:44) Oximetry (09/25/17 10:44) Sodium Chloride 0.9% Flush (Ns Flush) (09/25/17 10:45) Ct Brain W/O Iv Contrast(Rout) (09/25/17 ) Lorazepam Inj (Ativan Inj) (09/25/17 11:45) Alcohol Withdrawal Asmt-Ciwa ONCE (09/25/17 12:46) Flumazenil Inj (Romazicon Inj) (09/25/17 13:00) Lorazepam (Ativan) (09/25/17 13:00) Lorazepam Inj (Ativan Inj) (09/25/17 13:00) Lorazepam (Ativan) (09/25/17 13:00) Lorazepam Inj (Ativan Inj) (09/25/17 13:00) Lorazepam Inj (Ativan Inj) (09/25/17 13:00) Lorazepam Inj (Ativan Inj) (09/25/17 13:00) Admit Order (Ed Use Only) (09/25/17 13:08) Labs Laboratory Tests Test 09/25/17 10:50 White Blood Count 9.8 TH/MM3 Red Blood Count 3.47 MIL/MM3 Hemoglobin 13.6 GM/DL Hematocrit 39.6 % Mean Corpuscular Volume 114.0 FL Mean Corpuscular Hemoglobin 39.1 PG Mean Corpuscular Hemoglobin Concent 34.3 % Red Cell Distribution Width 17.5 % Platelet Count 233 TH/MM3 Mean Platelet Volume 8.6 FL Neutrophils (%) (Auto) 70.2 % Lymphocytes (%) (Auto) 19.8 % Monocytes (%) (Auto) 8.3 % Eosinophils (%) (Auto) 1.3 % Basophils (%) (Auto) 0.4 % Neutrophils # (Auto) 6.9 TH/MM3 Lymphocytes # (Auto) 1.9 TH/MM3 Monocytes # (Auto) 0.8 TH/MM3 Eosinophils # (Auto) 0.1 TH/MM3 Basophils # (Auto) 0.0 TH/MM3 CBC Comment DIFF FINAL Differential Comment Prothrombin Time 11.6 SEC Prothromb Time International Ratio 1.1 RATIO Activated Partial Thromboplast Time 27.4 SEC Blood Urea Nitrogen 13 MG/DL Creatinine 1.02 MG/DL Random Glucose 133 MG/DL Total Protein 9.0 GM/DL Albumin 2.6 GM/DL Calcium Level 9.0 MG/DL Alkaline Phosphatase 385 U/L Aspartate Amino Transf (AST/SGOT) 232 U/L Alanine Aminotransferase (ALT/SGPT) 60 U/L Total Bilirubin 0.7 MG/DL Sodium Level 128 MEQ/L Potassium Level 3.5 MEQ/L Chloride Level 83 MEQ/L Carbon Dioxide Level 36.1 MEQ/L Anion Gap 9 MEQ/L Estimat Glomerular Filtration Rate 58 ML/MIN Ammonia 23 MCMOL/L Ethyl Alcohol Level 11 MG/DL MDM Medical Decision Making Medical Screen Exam Complete: Yes Emergency Medical Condition: Yes Interpretation(s) Afebrile, tachycardic, hypertensive No leukocytosis Macrocytosis Hyponatremia AST is greater than ALT Ammonia is normal Alcohol level is 11 Last [address] 09/25/17 0000 Signed Impressions: Service Date/Time: Monday, September 25, 2017 12:35 - CONCLUSION: No acute intracranial disease. Jose German MD Brain MRI 09/25/17 0000 Signed Impressions: Service Date/Time: Monday, September 25, 2017 16:34 - CONCLUSION: 1. No evidence of acute intracranial pathology. No masses are identified. Aron Lopez MD Differential Diagnosis Cerebellar ataxia, peripheral neuropathy, Wernicke's encephalopathy, multiple sclerosis, stroke, Narrative Course This is a 47-year-old female who presents to the emergency department with generalized weakness, difficulty walking and frequent falls. This is been progressive over the past month. She went to her primary care physician who sent her here for further evaluation. It sounds like she has a history of alcoholism. She told me she drank one glass of wine last night but her alcohol level is still 11 here in the emergency department. Her MCV is very high. I suspect her symptoms are related to peripheral neuropathy and some underlying cerebellar ataxia from her alcoholism however given her weakness seems to be progressive and she has objective findings on exam I think it's reasonable to place her in observation for neurologic workup. She also is in mild alcohol withdrawal with tachycardia and hypertension. She is placed on a CIWA protocol. Physician Communication Physician Communication Discussed with Dr. Lal Diagnosis Primary Impression: Generalized weakness Admitting Information Admitting Physician Requests: Observation Scripts No Active Prescriptions or Reported Meds Adelaide Parada MD Sep 25, 2017 10:59
[2017-09-25 11:11] LABS: AUTOMATED NEUTROPHIL # 6.9 TH/MM3 (1.8-7.7); BASOPHIL % 0.4 % (0.0-2.0); EOSINOPHIL # 0.1 TH/MM3 (0-0.4); EOSINOPHIL % 1.3 % (0.0-4.0); HEMATOCRIT 39.6 % (35.0-46.0); HEMO FLAGS DIFF FINAL; LYMPH % 19.8 % (9.0-44.0); LYMPHOCYTE # 1.9 TH/MM3 (1.0-4.8); MEAN CORPUSCULAR HEMOGLOBIN 39.1 PG (27.0-34.0); MEAN CORPUSCULAR HGB CONC 34.3 % (32.0-36.0); MONO % 8.3 % (0.0-8.0); NEUT % 70.2 % (16.0-70.0); PLATELET COUNT 233 TH/MM3 (150-450); RED BLOOD COUNT 3.47 MIL/MM3 (4.00-5.30); RED CELL DISTRIBUTION WIDTH 17.5 % (11.6-17.2); WHITE BLOOD COUNT 9.8 TH/MM3 (4.0-11.0)
[2017-09-25 11:15] LABS: APTT (PATIENT) 27.4 SEC (24.3-30.1); INTERNATIONAL NORMALIZED RATIO 1.1 RATIO; PROTHROMBIN TIME - PATIENT 11.6 SEC (9.8-11.6)
[2017-09-25 11:24] LABS: ANION GAP 9 MEQ/L (5-15); AST (GOT) 232 U/L (15-37); BICARBONATE 36.1 MEQ/L (21.0-32.0); BLOOD UREA NITROGEN 13 MG/DL (7-18); CHLORIDE 83 MEQ/L (98-107); GLOMERULAR FILTRATION RATE 58 ML/MIN (>89); POTASSIUM 3.5 MEQ/L (3.5-5.1); SODIUM (NA) 128 MEQ/L (136-145)
[2017-09-25 11:29] LABS: ALKALINE PHOSPHATASE 385 U/L (45-117); ALT (GPT) 60 U/L (10-53); TOTAL BILIRUBIN ADULT 0.7 MG/DL (0.2-1.0)
[2017-09-25 11:33] LABS: ALCOHOL 11 MG/DL (0-5)
[2017-09-25] MEDS ORDERED: LORazepam 2 MG/ML VIAL IV PUSH ONE (11:45)
--- NOTE | 2017-09-25 12:44 | RADRPT ---
EXAM DATE/TIME: 09/25/2017 12:35 [facility] COMPARISON: CT BRAIN W/O CONTRAST, September 13, 2017, 18:40. INDICATIONS : Altered mental status, weakness with abdominal distention for one month RADIATION DOSE: 31.68 CTDIvol (mGy) MEDICAL HISTORY : Cirrhosis. Deep venous thrombosis. Seizures. SURGICAL HISTORY : None. ENCOUNTER: Initial ACUITY: 1 week PAIN SCALE: 4/10 LOCATION: cranial TECHNIQUE: Multiple contiguous axial images were obtained of the head. Using automated exposure control and adj ustment of the mA and/or kV according to patient size, radiation dose was kept as low as reasonably a chievable to obtain optimal diagnostic quality images. DICOM format image data is available electro nically for review and comparison. FINDINGS: CEREBRUM: The ventricles are normal for age. No evidence of midline shift, mass lesion, hemorrhage or acute in farction. No extra-axial fluid collections are seen. POSTERIOR FOSSA: The cerebellum and brainstem are intact. The 4th ventricle is midline. The cerebellopontine angle i s unremarkable. EXTRACRANIAL: The visualized portion of the orbits is intact. SKULL: The calvaria is intact. No evidence of skull fracture. CONCLUSION: No acute intracranial disease. Jose German MD on September 25, 2017 at 12:42 Board Certified Radiologist. This report was verified electronically.
[2017-09-25 12:52] VITALS: BP 111/64; PULSE 107; RESP 20; O2SAT 96
[2017-09-25] MEDS ORDERED: LORazepam 2 MG/ML VIAL IV PUSH PRN ×8 (13:00→13:15)
[2017-09-25] MEDS ORDERED: LORazepam 2 MG TAB PO PRN ×2 (13:00→13:15)
[2017-09-25] MEDS ORDERED: FLUMAZENIL 0.5 MG/5 ML VIAL IV PUSH PRN ×2 (13:00→13:15)
[2017-09-25] MEDS ORDERED: LORazepam 1 MG TAB PO PRN (13:00)
[2017-09-25] MEDS ORDERED: NALOXONE HCL 0.4 MG/ML AMP IV PUSH PRN (13:15)
[2017-09-25] MEDS ORDERED: ONDANSETRON HCL 4 MG/2 ML VIAL IVP PRN (13:15)
[2017-09-25] MEDS ORDERED: MAGNESIUM HYDROXIDE SUSP 30 ML CUP PO PRN (13:15)
[2017-09-25] MEDS ORDERED: ACETAMINOPHEN 325 MG TAB PO PRN ×2 (13:15)
[2017-09-25] MEDS ORDERED: SODIUM CHLORIDE 0.9% FLUSH 10 ML FLUSH IV FLUSH PRN (13:15)
[2017-09-25] MEDS ORDERED: cloNIDine HCL 0.1 MG TAB PO PRN (15:30)
--- NOTE | 2017-09-25 15:32 | HHI.HP ---
HPI Service [facility] Primary Care Physician No Primary Care Physician Admission Diagnosis weakness Diagnoses: (1) Alcohol dependence (2) Alcohol abuse (3) Generalized weakness Chief Complaint: Generalized weakness Travel History International Travel<30 Days: No Contact w/Intl Traveler <30 Da: No Traveled to Known Affected Are: No History of Present Illness 47 year-old female with a history of alcohol dependence is advised to seek medical attention to the ED by her PCP for evaluation of ongoing lower extremities weakness and generalized malaise times several months duration, associated with numbness and tingling to upper extremities. Patient drink an average of 3-4 beers every 3-4 days a week, and states over the past 24 hours she had 2 bottles of wine with friends. She reports frequent fall and difficulty walking however Head CT in ED was unremarkable. As of 09/13/17 patient was diagnosed with diffuse hepatic steatosis on CT scan. During the exam, patient was requesting narcotics. She denies any GI bleed, significant shortness of breath or chest pain. Review of Systems Except as stated in HPI: all other systems reviewed are Neg Past Family Social History Past Medical History Alcohol dependence History of diffuse hepatic steatosis per CT scan 09/13/17 Prior History of left upper extremity DVT Past Surgical History Reported Medications Not currently on any medication Allergies: Coded Allergies: latex (Verified Allergy, Intermediate, Ulcers, 09/25/17) blisters Family History Negative family history of CAD Social History Alcohol Use: Yes (etoh abuse ) Tobacco Use: Yes (1/2 ppd) Substance Use: No Physical Exam Vital Signs Vital Signs Date Time Temp Pulse Resp B/P (MAP) Pulse Ox O2 Delivery O2 Flow Rate FiO2 09/25/17 14:15 09/25/17 12:52 107 20 111/64 (80) 96 Room Air 09/25/17 10:22 98.1 125 20 176/74 (108) 98 Room Air Physical Exam GENERAL: This is a well-nourished, well-developed patient, in no apparent distress. SKIN: No rashes, ecchymoses or lesions. Cool and dry. HEAD: Atraumatic. Normocephalic. No temporal or scalp tenderness. EYES: Pupils equal round and reactive. Extraocular motions intact. No scleral icterus. No injection or drainage. ENT: Nose without bleeding, purulent drainage or septal hematoma. Throat without erythema, tonsillar hypertrophy or exudate. Uvula midline. Airway patent. NECK: Trachea midline. No JVD or lymphadenopathy. Supple, nontender, no meningeal signs. CARDIOVASCULAR: Regular rate and rhythm without murmurs, gallops, or rubs. RESPIRATORY: Clear to auscultation. Breath sounds equal bilaterally. No wheezes , rales, or rhonchi. GASTROINTESTINAL: Abdomen soft, non-tender, nondistended. No hepato-splenomegaly , or palpable masses. No guarding. MUSCULOSKELETAL: Extremities without clubbing, cyanosis, or edema. No joint tenderness, effusion, or edema noted. No calf tenderness. Negative Homans sign bilaterally. NEUROLOGICAL: Awake and alert. Cranial nerves II through XII intact. Motor and sensory grossly within normal limits. Five out of 5 muscle strength in all muscle groups. Normal speech. Laboratory Laboratory Tests Test 09/25/17 10:50 White Blood Count 9.8 Red Blood Count 3.47 Hemoglobin 13.6 Hematocrit 39.6 Mean Corpuscular Volume 114.0 Mean Corpuscular Hemoglobin 39.1 Mean Corpuscular Hemoglobin Concent 34.3 Red Cell Distribution Width 17.5 Platelet Count 233 Mean Platelet Volume 8.6 Neutrophils (%) (Auto) 70.2 Lymphocytes (%) (Auto) 19.8 Monocytes (%) (Auto) 8.3 Eosinophils (%) (Auto) 1.3 Basophils (%) (Auto) 0.4 Neutrophils # (Auto) 6.9 Lymphocytes # (Auto) 1.9 Monocytes # (Auto) 0.8 Eosinophils # (Auto) 0.1 Basophils # (Auto) 0.0 CBC Comment DIFF FINAL Differential Comment Prothrombin Time 11.6 Prothromb Time International Ratio 1.1 Activated Partial Thromboplast Time 27.4 Blood Urea Nitrogen 13 Creatinine 1.02 Random Glucose 133 Total Protein 9.0 Albumin 2.6 Calcium Level 9.0 Alkaline Phosphatase 385 Aspartate Amino Transf (AST/SGOT) 232 Alanine Aminotransferase (ALT/SGPT) 60 Total Bilirubin 0.7 Sodium Level 128 Potassium Level 3.5 Chloride Level 83 Carbon Dioxide Level 36.1 Anion Gap 9 Estimat Glomerular Filtration Rate 58 Ammonia 23 Ethyl Alcohol Level 11 Result Diagram: 09/25/17 1050 09/25/17 1050 Imaging Last Impressions Head CT 09/25/17 0000 Signed Impressions: Service Date/Time: Monday, September 25, 2017 12:35 - CONCLUSION: No acute intracranial disease. MD Imani Arreola VTE Risk Assessment Imani VTE Risk Assessment: No/Low Risk (score <= 1) Caprini Risk Assessment Model Point Value = 1 Point Value = 2 Point Value = 3 Point Value = 5 Age 41-60 Minor surgery BMI > 25 kg/m2 Swollen legs Varicose veins or History of unexplained or recurrent spontaneous Oral contraceptives or hormone replacement Sepsis (< 1 month) Serious lung disease, including pneumonia (< 1 month) Abnormal pulmonary function Acute myocardial infarction Congestive heart failure (< 1 month) History of inflammatory bowel disease Medical patient at bed rest Age 61-74 Arthroscopic surgery Major open surgery (> 45 min) Laparoscopic surgery (> 45 min) Malignancy Confined to bed (> 72 hours) Immobilizing plaster cast Central venous access Age >= 75 History of VTE Family history of VTE Factor V Leiden Prothrombin [id number] Lupus anticoagulant Anticardiolipin antibodies Elevated serum homocysteine Heparin-induced thrombocytopenia Other congenital or acquired thrombophilia Stroke (< 1 month) Elective arthroplasty Hip, pelvis, or leg fracture Acute spinal cord injury (< 1 month) Prophylaxis Regimen Total Risk Factor Score Risk Level Prophylaxis Regimen 0-1 Low Early ambulation 2 Moderate Order ONE of the following: *Sequential Compression Device (SCD) *Heparin 5000 units SQ BID 3-4 Higher Order ONE of the following medications: *Heparin 5000 units SQ TID *Enoxaparin/Lovenox 40 mg SQ daily (WT < 150 kg, CrCl > 30 mL/min) *Enoxaparin/Lovenox 30 mg SQ daily (WT < 150 kg, CrCl > 10-29 mL/min) *Enoxaparin/Lovenox 30 mg SQ BID (WT < 150 kg, CrCl > 30 mL/min) AND/OR *Sequential Compression Device (SCD) 5 or more Highest Order ONE of the following medications: *Heparin 5000 units SQ TID (Preferred with Epidurals) *Enoxaparin/Lovenox 40 mg SQ daily (WT < 150 kg, CrCl > 30 mL/min) *Enoxaparin/Lovenox 30 mg SQ daily (WT < 150 kg, CrCl > 10-29 mL/min) *Enoxaparin/Lovenox 30 mg SQ BID (WT < 150 kg, CrCl > 30 mL/min) AND *Sequential Compression Device (SCD) Assessment and Plan Problem List: (1) Generalized weakness ICD Code: R53.1 - Weakness (2) Alcohol dependence ICD Code: F10.20 - Alcohol dependence, uncomplicated (3) Hypokalemia ICD Code: E87.6 - Hypokalemia Status: Acute Assessment and Plan 47-year-old female with Generalized weakness Head CT noted and review by me without any finding of acute intracranial abnormality however will check brain MRI secondary to patient history of frequent falls to r/o CVA Likely secondary to history of alcohol dependence/abuse Check vitamin B12 level Consult PT to treat and eval Consider neurology consultation Alcohol dependence/abuse Alcohol cessation counseling provided Start rally pack, CIWA protocol and Librium when necessary Transaminitis Patient with a history of alcohol dependence and evidence of diffuse hepatic steatosis on CT scan 09/13/17 However will check hepatitis profile Continue monitoring LFTs Mild acute kidney injury Monitor BUN/creatinine Avoid all nephrotoxic drugs Hyponatremia Secondary to beer potomania Hyperglycemia/elevated blood glucose Check hemoglobin A1c and treat accordingly DVT prophylaxis: Bilateral SCDs Code Status Full code Discussed Condition With Patient, ED physician Jose Lal MD Sep 25, 2017 15:32
[2017-09-25 16:10] VITALS: BP 127/66; PULSE 68; RESP 20; TEMP 98.2; O2SAT 96
--- NOTE | 2017-09-25 17:09 | RADRPT ---
EXAM DATE/TIME: 09/25/2017 16:34 [facility] COMPARISON: No previous studies available for comparison. INDICATIONS : CVA. Weakness. MEDICAL HISTORY : Deep venous thrombosis. SURGICAL HISTORY : Cholecystectomy. ENCOUNTER: Initial ACUITY: 2 day PAIN SCORE: 0/10 LOCATION: head TECHNIQUE: Multiplanar, multisequence MRI of the brain was performed without contrast. FINDINGS: CEREBRUM: The ventricles are normal for age. No evidence of midline shift, mass lesion, hemorrhage or acute in farction. No extraaxial fluid collections are seen. The pituitary gland and suprasellar cistern are normal in configuration. WHITE MATTER: No significant signal abnormalities are seen in the white matter. POSTERIOR FOSSA: The cerebellum and brainstem are intact. The 4th ventricle is midline. The cerebellopontine angle is unremarkable. The cerebellar tonsils are normal in position. DIFFUSION IMAGING: No focal areas of restricted diffusion are seen. No evidence of acute infarction. EXTRACRANIAL: The visualized portions of the orbits and paranasal sinuses are unremarkable. CONCLUSION: 1. No evidence of acute intracranial pathology. No masses are identified. Aron Lopez MD on September 25, 2017 at 17:06 Board Certified Radiologist. This report was verified electronically.
[2017-09-25 20:35] VITALS: BP 140/85; PULSE 114; RESP 17; TEMP 98.6; O2SAT 96
[2017-09-25] MEDS: LORazepam 1 MG TAB PO PRN (21:46)
[2017-09-25] MEDS: SODIUM CHLORIDE 0.9% FLUSH 10 ML FLUSH IV FLUSH SCH (21:46)
[2017-09-26 00:10] VITALS: BP 126/61; PULSE 120; RESP 18; TEMP 98; O2SAT 96
[2017-09-26] MEDS: LORazepam 1 MG TAB PO PRN ×2 (02:00→12:45)
[2017-09-26 04:08] VITALS: BP 135/71; PULSE 69; RESP 18; TEMP 98.7; O2SAT 96
[2017-09-26 07:49] LABS: AUTOMATED NEUTROPHIL # 5.8 TH/MM3 (1.8-7.7); BASOPHIL % 0.3 % (0.0-2.0); EOSINOPHIL # 0.1 TH/MM3 (0-0.4); EOSINOPHIL % 1.5 % (0.0-4.0); HEMATOCRIT 34.3 % (35.0-46.0); HEMO FLAGS DIFF FINAL; LYMPH % 21.2 % (9.0-44.0); LYMPHOCYTE # 1.8 TH/MM3 (1.0-4.8); MEAN CELL VOLUME 112.6 FL (80.0-100.0); MEAN CORPUSCULAR HGB CONC 35.6 % (32.0-36.0); MONO % 6.7 % (0.0-8.0); NEUT % 70.3 % (16.0-70.0); PLATELET COUNT 156 TH/MM3 (150-450); RED BLOOD COUNT 3.05 MIL/MM3 (4.00-5.30); RED CELL DISTRIBUTION WIDTH 17.7 % (11.6-17.2); WHITE BLOOD COUNT 8.3 TH/MM3 (4.0-11.0)
[2017-09-26 08:33] VITALS: BP 138/84; PULSE 115; RESP 18; TEMP 98.6; O2SAT 98
[2017-09-26 08:36] LABS: ALKALINE PHOSPHATASE 302 U/L (45-117); ALT (GPT) 42 U/L (10-53); ANION GAP 8 MEQ/L (5-15); AST (GOT) 144 U/L (15-37); BICARBONATE 35.8 MEQ/L (21.0-32.0); BLOOD UREA NITROGEN 9 MG/DL (7-18); CHLORIDE 86 MEQ/L (98-107); GLOMERULAR FILTRATION RATE 141 ML/MIN (>89); SODIUM (NA) 130 MEQ/L (136-145); TOTAL BILIRUBIN ADULT 1.2 MG/DL (0.2-1.0)
[2017-09-26 08:41] LABS: POTASSIUM 2.8 MEQ/L (3.5-5.1)
[2017-09-26] MEDS: THIAMINE HCL 100 MG TAB PO SCH (09:41)
[2017-09-26] MEDS: SODIUM CHLORIDE 0.9% FLUSH 10 ML FLUSH IV FLUSH SCH ×2 (09:41→21:00)
[2017-09-26] MEDS: FOLIC ACID 1 MG TAB PO SCH (09:41)
[2017-09-26] MEDS: PANTOPRAZOLE SOD 40 MG DELAYED RELEASE TAB PO SCH (09:41)
[2017-09-26 10:02] LABS: BLOOD, URINE NEG (NEG); COMMENT (UR) CULT NOT INDICATED; CULTURE IF INDICATED CULT NOT INDICATED; GLUCOSE,URINE NEG (NEG); KETONE, URINE NEG (NEG); NITRITE,URINE NEG (NEG); SQUAMOUS EPITHELIAL CELL URINE 9 /hpf (0-5); URINE COLOR YELLOW (YELLW/STRAW)
[2017-09-26] MEDS ORDERED: POTASSIUM CHLORIDE 20 MEQ PWD PACKET PO ONE (10:15)
--- NOTE | 2017-09-26 13:07 | HHI.PR ---
Subjective Remarks Patient feels no better today compared to yesterday. She continues to exhibit electrolyte disturbances including hyponatremia and hypokalemia. Replacements are being provided and further monitoring is ongoing. Objective Vital Signs Date Time Temp Pulse Resp B/P (MAP) Pulse Ox O2 Delivery O2 Flow Rate FiO2 09/26/17 08:33 98.6 115 18 138/84 (102) 98 09/26/17 04:08 98.7 69 18 135/71 (92) 96 09/26/17 00:10 98.0 120 18 126/61 (82) 96 09/25/17 20:35 98.6 114 17 140/85 (103) 96 09/25/17 16:10 98.2 68 20 127/66 (86) 96 09/25/17 14:15 I/O 09/25/17 09/25/17 09/25/17 09/26/17 09/26/17 09/26/17 07:00 15:00 23:00 07:00 15:00 23:00 Intake Total 500 ml Output Total 1 ml Balance 499 ml Intake Oral 500 ml Output Stool Total 1 ml # Voids 2 Result Diagram: 09/26/17 0605 09/26/17 1215 Objective Remarks GENERAL: NAD, A&Ox3 HEAD: Normocephalic. NECK: Supple, trachea midline. No lymphadenopathy. EYES: No scleral icterus. No injection or drainage. CARDIOVASCULAR: Regular rate and rhythm without murmurs, gallops, or rubs. RESPIRATORY: Breath sounds equal bilaterally. No accessory muscle use. GASTROINTESTINAL: Abdomen soft, non-tender, nondistended. MUSCULOSKELETAL: No cyanosis, or edema. SKIN: Warm and dry. NEURO: No focal neurological deficitis. A/P Problem List: (1) Hyponatremia ICD Code: E87.1 - Hypo-osmolality and hyponatremia (2) Alcohol dependence ICD Code: F10.20 - Alcohol dependence, uncomplicated (3) Generalized weakness ICD Code: R53.1 - Weakness (4) Hypokalemia ICD Code: E87.6 - Hypokalemia Status: Acute (5) Alcohol abuse ICD Code: F10.10 - Alcohol abuse, uncomplicated Assessment and Plan Assessment and Plan 47-year-old female admitted secondary to weakness Hyponatremia Hypokalemia Etiology appears to be alcohol abuse related Continue to monitor replace as needed This may be contributory to weakness Generalized weakness B12 level is within normal limits Continue physical therapy Treat electrolyte disturbance as above Alcohol dependence/abuse Continue to monitor for withdrawals Continue vitamins CIWA protocol Transaminitis Related to alcohol abuse Improving Acute kidney injury Avoid nephrotoxins Follow renal function DVT prophylaxis Bilateral SCDs Mitchell Butts MD Sep 26, 2017 13:07
[2017-09-26] MEDS: traMADol HCL 50 MG TAB PO PRN ×2 (13:35→21:05)
[2017-09-26] MEDS: NS + KCL 40 MEQ INJ 1,000 ML IV SCH ×2 (13:35→22:43)
[2017-09-26 14:03] LABS: HEMOGLOBIN A1a 1.5 %; HEMOGLOBIN A1b 0.7 %; HEMOGLOBIN Ao 87.2 %; HEMOGLOBIN F 0.9 %; HEMOGLOBIN LA1C 1.9 %; HEMOGLOBIN P3 3.1 %
[2017-09-26 14:20] VITALS: BP 123/93; PULSE 112; RESP 18; TEMP 99.2; O2SAT 95
[2017-09-26 17:44] VITALS: BP 149/96; PULSE 118; RESP 18; TEMP 98; O2SAT 98
[2017-09-26 19:30] VITALS: BP 136/83; PULSE 100; RESP 18; TEMP 98.3; O2SAT 96
[2017-09-27] VITALS: BP 115/75; PULSE 112; RESP 20; TEMP 98.7; O2SAT 97
[2017-09-27] MEDS: NS + KCL 40 MEQ INJ 1,000 ML IV SCH (02:13)
[2017-09-27 05:00] VITALS: BP 129/81; PULSE 107; RESP 20; TEMP 97.7; O2SAT 96
[2017-09-27 05:10] LABS: AUTOMATED NEUTROPHIL # 5.8 TH/MM3 (1.8-7.7); BASOPHIL % 0.4 % (0.0-2.0); EOSINOPHIL # 0.3 TH/MM3 (0-0.4); EOSINOPHIL % 2.8 % (0.0-4.0); HEMATOCRIT 34.4 % (35.0-46.0); HEMO FLAGS DIFF FINAL; LYMPH % 25.6 % (9.0-44.0); LYMPHOCYTE # 2.4 TH/MM3 (1.0-4.8); MEAN CELL VOLUME 114.1 FL (80.0-100.0); MONO % 8.5 % (0.0-8.0); NEUT % 62.7 % (16.0-70.0); PLATELET COUNT 127 TH/MM3 (150-450); RED BLOOD COUNT 3.02 MIL/MM3 (4.00-5.30); RED CELL DISTRIBUTION WIDTH 17.4 % (11.6-17.2); WHITE BLOOD COUNT 9.2 TH/MM3 (4.0-11.0)
[2017-09-27] MEDS: traMADol HCL 50 MG TAB PO PRN ×3 (05:13→19:25)
[2017-09-27 05:42] LABS: ANION GAP 11 MEQ/L (5-15); AST (GOT) 111 U/L (15-37); BICARBONATE 29.3 MEQ/L (21.0-32.0); BLOOD UREA NITROGEN 7 MG/DL (7-18); CHLORIDE 89 MEQ/L (98-107); GLOMERULAR FILTRATION RATE 141 ML/MIN (>89); POTASSIUM 3.4 MEQ/L (3.5-5.1); SODIUM (NA) 129 MEQ/L (136-145)
[2017-09-27 05:46] LABS: ALKALINE PHOSPHATASE 266 U/L (45-117); ALT (GPT) 37 U/L (10-53); TOTAL BILIRUBIN ADULT 1.2 MG/DL (0.2-1.0)
[2017-09-27 07:20] VITALS: BP 128/87; PULSE 105; RESP 16; TEMP 98.1; O2SAT 99
[2017-09-27] MEDS ORDERED: POTASSIUM CHLORIDE 20 MEQ PWD PACKET PO ONE (09:30)
[2017-09-27] MEDS: FOLIC ACID 1 MG TAB PO SCH (10:24)
[2017-09-27] MEDS: THIAMINE HCL 100 MG TAB PO SCH (10:24)
[2017-09-27] MEDS: PANTOPRAZOLE SOD 40 MG DELAYED RELEASE TAB PO SCH (10:25)
[2017-09-27] MEDS: SODIUM CHLORIDE 0.9% FLUSH 10 ML FLUSH IV FLUSH SCH ×2 (10:25→20:33)
[2017-09-27 12:00] VITALS: BP 125/78; PULSE 97; RESP 16; TEMP 97.1; O2SAT 95
--- NOTE | 2017-09-27 12:36 | HHI.PR ---
Subjective Remarks Complaints of insomnia last night. Complaints of diffuse joint pains. Electrolyte disturbance is still present. Sodium is 129 today. Potassium is 3.4 today. Objective Vital Signs Date Time Temp Pulse Resp B/P (MAP) Pulse Ox O2 Delivery O2 Flow Rate FiO2 09/27/17 07:20 98.1 105 16 128/87 (101) 99 09/27/17 05:00 97.7 107 20 129/81 (97) 96 09/27/17 00:00 98.7 112 20 115/75 (88) 97 09/26/17 19:30 98.3 100 18 136/83 (100) 96 09/26/17 17:44 98.0 118 18 149/96 (113) 98 09/26/17 14:35 18 09/26/17 14:20 99.2 112 18 123/93 (103) 95 I/O 09/26/17 09/26/17 09/26/17 09/27/17 09/27/17 09/27/17 07:00 15:00 23:00 07:00 15:00 23:00 Intake Total 500 ml 1320 ml Output Total 1 ml 250 ml 200 ml Balance 499 ml -250 ml -200 ml 1320 ml Intake Oral 500 ml 120 ml IV Total 1200 ml Output Urine Total 250 ml 200 ml Stool Total 1 ml # Voids 2 2 # Bowel Movements 1 Result Diagram: 09/27/1740709/27/17407 Objective Remarks GENERAL: NAD, A&Ox3 HEAD: Normocephalic. NECK: Supple, trachea midline. No lymphadenopathy. EYES: No scleral icterus. No injection or drainage. CARDIOVASCULAR: Regular rate and rhythm without murmurs, gallops, or rubs. RESPIRATORY: Breath sounds equal bilaterally. No accessory muscle use. GASTROINTESTINAL: Abdomen soft, non-tender, nondistended. MUSCULOSKELETAL: No cyanosis, or edema. SKIN: Warm and dry. NEURO: No focal neurological deficitis. A/P Problem List: (1) Hyponatremia ICD Code: E87.1 - Hypo-osmolality and hyponatremia (2) Alcohol dependence ICD Code: F10.20 - Alcohol dependence, uncomplicated (3) Generalized weakness ICD Code: R53.1 - Weakness (4) Hypokalemia ICD Code: E87.6 - Hypokalemia Status: Acute (5) Alcohol abuse ICD Code: F10.10 - Alcohol abuse, uncomplicated Assessment and Plan Assessment and Plan 47-year-old female admitted secondary to weakness. Labs reviewed Potassium and sodium remained low. Further supplementation/replacement needed. Labs ordered for further monitoring. Regarding joint pain in his NSAID is added and rheumatoid factor ordered. Ambien provided for tonight regarding insomnia. Hyponatremia Hypokalemia Etiology appears to be alcohol abuse related Continue to monitor replace as needed This may be contributory to weakness Generalized weakness B12 level is within normal limits Continue physical therapy Treat electrolyte disturbance as above Alcohol dependence/abuse Continue to monitor for withdrawals Continue vitamins [facility] protocol Transaminitis Related to alcohol abuse Improving Acute kidney injury Avoid nephrotoxins Follow renal function DVT prophylaxis Bilateral SCDs Mitchell Butts MD Sep 27, 2017 12:36
[2017-09-27] MEDS ORDERED: NAPROXEN 500 MG TAB PO ONE (12:45)
[2017-09-27 16:00] VITALS: BP 130/90; PULSE 101; RESP 16; TEMP 96.8; O2SAT 97
[2017-09-27 20:30] VITALS: BP 125/83; PULSE 100; RESP 18; TEMP 97.5; O2SAT 96
[2017-09-27] MEDS: NAPROXEN 500 MG TAB PO SCH (20:30)
[2017-09-27] MEDS ORDERED: ZOLPIDEM TARTRATE 5 MG TAB PO PRN (21:00)
[2017-09-28 00:21] VITALS: BP 115/85; PULSE 105; RESP 18; TEMP 97.9; O2SAT 97
[2017-09-28] MEDS: NS + KCL 40 MEQ INJ 1,000 ML IV SCH (00:45)
[2017-09-28] MEDS: traMADol HCL 50 MG TAB PO PRN ×4 (01:43→22:19)
[2017-09-28 07:03] LABS: AUTOMATED NEUTROPHIL # 5.5 TH/MM3 (1.8-7.7); BASOPHIL % 0.4 % (0.0-2.0); EOSINOPHIL # 0.5 TH/MM3 (0-0.4); EOSINOPHIL % 4.9 % (0.0-4.0); HEMATOCRIT 32.7 % (35.0-46.0); HEMO FLAGS DIFF FINAL; LYMPH % 26.2 % (9.0-44.0); LYMPHOCYTE # 2.5 TH/MM3 (1.0-4.8); MEAN CELL VOLUME 113.9 FL (80.0-100.0); MEAN CORPUSCULAR HGB CONC 34.2 % (32.0-36.0); MONO % 10.4 % (0.0-8.0); NEUT % 58.1 % (16.0-70.0); PLATELET COUNT 144 TH/MM3 (150-450); RED BLOOD COUNT 2.87 MIL/MM3 (4.00-5.30); RED CELL DISTRIBUTION WIDTH 17.6 % (11.6-17.2); WHITE BLOOD COUNT 9.5 TH/MM3 (4.0-11.0)
[2017-09-28 07:27] LABS: RHEUMATOID FACTOR TRIGGER LESS THAN 10.0 IU/ML (0.0-14.9)
[2017-09-28 07:28] LABS: ANION GAP 7 MEQ/L (5-15); AST (GOT) 97 U/L (15-37); BICARBONATE 30.5 MEQ/L (21.0-32.0); BLOOD UREA NITROGEN 8 MG/DL (7-18); CHLORIDE 96 MEQ/L (98-107); GLOMERULAR FILTRATION RATE 116 ML/MIN (>89); POTASSIUM 4.2 MEQ/L (3.5-5.1); SODIUM (NA) 133 MEQ/L (136-145)
[2017-09-28 07:45] LABS: ALKALINE PHOSPHATASE 243 U/L (45-117); ALT (GPT) 33 U/L (10-53); TOTAL BILIRUBIN ADULT 1.1 MG/DL (0.2-1.0)
[2017-09-28 08:00] VITALS: BP 121/86; PULSE 109; RESP 18; TEMP 96; O2SAT 97
[2017-09-28] MEDS: FOLIC ACID 1 MG TAB PO SCH (09:24)
[2017-09-28] MEDS: NAPROXEN 500 MG TAB PO SCH ×2 (09:24→22:17)
[2017-09-28] MEDS: PANTOPRAZOLE SOD 40 MG DELAYED RELEASE TAB PO SCH (09:24)
[2017-09-28] MEDS: THIAMINE HCL 100 MG TAB PO SCH (09:24)
[2017-09-28] MEDS: SODIUM CHLORIDE 0.9% FLUSH 10 ML FLUSH IV FLUSH SCH ×2 (09:29→22:19)
[2017-09-28 12:00] VITALS: BP 121/81; PULSE 112; RESP 18; TEMP 97.3; O2SAT 95
--- NOTE | 2017-09-28 13:50 | HHI.PR ---
Subjective Remarks Electrolyte disturbances improve. Potassium has normalized. Sodium is mildly low. Patient's ability to ambulate has not yet improved. She is still determine to need treatment with inpatient rehabilitation. She does not have insurance, so this will be an option. Discharge to home does not seem safe yet. Objective Vital Signs Date Time Temp Pulse Resp B/P (MAP) Pulse Ox O2 Delivery O2 Flow Rate FiO2 09/28/17 12:00 97.3 112 18 121/81 (94) 95 09/28/17 08:00 96.0 109 18 121/86 (98) 97 09/28/17 00:21 97.9 105 18 115/85 (95) 97 09/27/17 20:30 97.5 100 18 125/83 (97) 96 09/27/17 16:00 96.8 101 16 130/90 (103) 97 09/27/17 14:06 16 09/27/17 14:06 16 I/O 09/27/17 09/27/17 09/27/17 09/28/17 09/28/17 09/28/17 07:00 15:00 23:00 07:00 15:00 23:00 Intake Total 1320 ml 960 ml 240 ml 480 ml Balance 1320 ml 960 ml 240 ml 480 ml Intake Oral 120 ml 960 ml 240 ml 480 ml IV Total 1200 ml # Voids 2 3 2 7 # Bowel Movements 0 0 0 Result Diagram: 09/28/1751209/28/17512 Objective Remarks GENERAL: NAD, A&Ox3 HEAD: Normocephalic. NECK: Supple, trachea midline. No lymphadenopathy. EYES: No scleral icterus. No injection or drainage. CARDIOVASCULAR: Regular rate and rhythm without murmurs, gallops, or rubs. RESPIRATORY: Breath sounds equal bilaterally. No accessory muscle use. GASTROINTESTINAL: Abdomen soft, non-tender, nondistended. MUSCULOSKELETAL: No cyanosis, or edema. SKIN: Warm and dry. NEURO: No focal neurological deficitis. A/P Problem List: (1) Hyponatremia ICD Code: E87.1 - Hypo-osmolality and hyponatremia (2) Alcohol dependence ICD Code: F10.20 - Alcohol dependence, uncomplicated (3) Generalized weakness ICD Code: R53.1 - Weakness (4) Hypokalemia ICD Code: E87.6 - Hypokalemia Status: Acute (5) Alcohol abuse ICD Code: F10.10 - Alcohol abuse, uncomplicated Assessment and Plan Assessment and Plan 47-year-old female admitted secondary to weakness. Labs reviewed. Potassium levels have resolved. Sodium levels remain low. Continue to monitor. Continue physical therapy. Patient will need better physical functioning prior to safe discharge. Hyponatremia Hypokalemia Etiology appears to be alcohol abuse related Continue to monitor replace as needed This may be contributory to weakness Generalized weakness B12 level is within normal limits Continue physical therapy Treat electrolyte disturbance as above Alcohol dependence/abuse Continue to monitor for withdrawals Continue vitamins CIWA protocol Transaminitis Related to alcohol abuse Improving Acute kidney injury Avoid nephrotoxins Follow renal function DVT prophylaxis Bilateral SCDs Mitchell Butts MD Sep 28, 2017 13:50
[2017-09-28 16:00] VITALS: BP 105/74; PULSE 114; RESP 18; TEMP 97.1; O2SAT 96
[2017-09-28 20:00] VITALS: BP 122/79; PULSE 116; RESP 18; TEMP 97.6; O2SAT 98
[2017-09-28] MEDS: POTASSIUM CHLORIDE 20 MEQ CONTROLLED RELEASE TAB PO SCH (22:17)
[2017-09-29] MEDS: NS + KCL 40 MEQ INJ 1,000 ML IV SCH ×2 (00:25→12:30)
[2017-09-29 00:30] VITALS: BP 118/82; PULSE 110; RESP 17; TEMP 97.1; O2SAT 98
[2017-09-29 08:00] VITALS: BP 108/67; PULSE 95; RESP 18; TEMP 97; O2SAT 98
[2017-09-29] MEDS: SODIUM CHLORIDE 0.9% FLUSH 10 ML FLUSH IV FLUSH SCH (09:00)
[2017-09-29 09:17] LABS: AUTOMATED NEUTROPHIL # 5.6 TH/MM3 (1.8-7.7); BASOPHIL # 0.5 TH/MM3 (0-0.2); BASOPHIL % 5.8 % (0.0-2.0); EOSINOPHIL # 0.5 TH/MM3 (0-0.4); EOSINOPHIL % 5.9 % (0.0-4.0); HEMATOCRIT 33.6 % (35.0-46.0); LYMPHOCYTE # 1.3 TH/MM3 (1.0-4.8); MEAN CELL VOLUME 114.6 FL (80.0-100.0); MEAN CORPUSCULAR HEMOGLOBIN 39.5 PG (27.0-34.0); MEAN CORPUSCULAR HGB CONC 34.5 % (32.0-36.0); MONO % 13.5 % (0.0-8.0); NEUT % 60.8 % (16.0-70.0); PLATELET COUNT 174 TH/MM3 (150-450); RED BLOOD COUNT 2.93 MIL/MM3 (4.00-5.30); RED CELL DISTRIBUTION WIDTH 17.4 % (11.6-17.2); WHITE BLOOD COUNT 9.1 TH/MM3 (4.0-11.0)
[2017-09-29 09:19] LABS: HEMO FLAGS AUTO DIFF
[2017-09-29] MEDS: POTASSIUM CHLORIDE 20 MEQ CONTROLLED RELEASE TAB PO SCH (09:21)
[2017-09-29] MEDS: PANTOPRAZOLE SOD 40 MG DELAYED RELEASE TAB PO SCH (09:21)
[2017-09-29] MEDS: NAPROXEN 500 MG TAB PO SCH (09:21)
[2017-09-29] MEDS: THIAMINE HCL 100 MG TAB PO SCH (09:21)
[2017-09-29] MEDS: FOLIC ACID 1 MG TAB PO SCH (09:21)
[2017-09-29] MEDS: traMADol HCL 50 MG TAB PO PRN (09:22)
[2017-09-29 10:12] LABS: ANION GAP 10 MEQ/L (5-15); AST (GOT) 97 U/L (15-37); BICARBONATE 27.3 MEQ/L (21.0-32.0); BLOOD UREA NITROGEN 9 MG/DL (7-18); CHLORIDE 94 MEQ/L (98-107); GLOMERULAR FILTRATION RATE 126 ML/MIN (>89); POTASSIUM 4.1 MEQ/L (3.5-5.1); SODIUM (NA) 131 MEQ/L (136-145)
[2017-09-29 10:16] LABS: ALKALINE PHOSPHATASE 236 U/L (45-117); ALT (GPT) 37 U/L (10-53); BANDS 1 % (0-6); EOSINOPHILS 5 % (0-4); NEUTROPHIL # MANUAL DIFF 7.1 TH/MM3 (1.8-7.7); POLYS (SEG NEUTROPHILS) 77 % (16-70); TOTAL BILIRUBIN ADULT 1.2 MG/DL (0.2-1.0); WBC DIFF SAMPLE 100
[2017-09-29 10:17] LABS: PLATELET ESTIMATE SMEAR NORMAL (NORMAL); PLATELET MORPHOLOGY NORMAL (NORMAL); SCAN/DIFF FINAL DIFF MANUAL
[2017-09-29 12:00] VITALS: BP 109/67; PULSE 94; RESP 18; TEMP 97.2; O2SAT 97
[2017-09-29] MEDS ORDERED: MULT-65 PO (13:54)
[2017-09-29] MEDS ORDERED: NAPR500 PO (13:54)
[2017-09-29] MEDS ORDERED: TRAM50 PO (13:54)
[2017-09-29] MEDS ORDERED: POTA20TA5 PO (13:54)
--- NOTE | 2017-09-29 14:02 | HHI.DS ---
Discharge Summary Admission Date Sep 26, 2017 at 15:56 Discharge Date: Sep 29, 2017 Admitting Diagnosis weakness (1) Generalized weakness ICD Code: R53.1 - Weakness Diagnosis: Principal (2) Alcohol dependence ICD Code: F10.20 - Alcohol dependence, uncomplicated Diagnosis: Principal (3) Hypokalemia ICD Code: E87.6 - Hypokalemia Diagnosis: Principal Status: Acute Procedures None Brief History - From Admission 47 year-old female with a history of alcohol dependence is advised to seek medical attention to the ED by her PCP for evaluation of ongoing lower extremities weakness and generalized malaise times several months duration, associated with numbness and tingling to upper extremities. Patient drink an average of 3-4 beers every 3-4 days a week, and states over the past 24 hours she had 2 bottles of wine with friends. She reports frequent fall and difficulty walking however Head CT in ED was unremarkable. As of 09/13/17 patient was diagnosed with diffuse hepatic steatosis on CT scan. During the exam, patient was requesting narcotics. She denies any GI bleed, significant shortness of breath or chest pain. CBC/BMP: 09/29/17 0842 09/29/17 0842 Significant Findings Laboratory Tests Test 09/27/17 04:08 09/28/17 05:13 09/29/17 08:42 Red Blood Count 3.02 MIL/MM3 (4.00-5.30) 2.87 MIL/MM3 (4.00-5.30) 2.93 MIL/MM3 (4.00-5.30) Hematocrit 34.4 % (35.0-46.0) 32.7 % (35.0-46.0) 33.6 % (35.0-46.0) Mean Corpuscular Volume 114.1 FL (80.0-100.0) 113.9 FL (80.0-100.0) 114.6 FL (80.0-100.0) Mean Corpuscular Hemoglobin 40.0 PG (27.0-34.0) 39.0 PG (27.0-34.0) 39.5 PG (27.0-34.0) Red Cell Distribution Width 17.4 % (11.6-17.2) 17.6 % (11.6-17.2) 17.4 % (11.6-17.2) Platelet Count 127 TH/MM3 (150-450) 144 TH/MM3 (150-450) Monocytes (%) (Auto) 8.5 % (0.0-8.0) 10.4 % (0.0-8.0) 13.5 % (0.0-8.0) Creatinine 0.47 MG/DL (0.50-1.00) Albumin 2.2 GM/DL (3.4-5.0) 2.3 GM/DL (3.4-5.0) 2.4 GM/DL (3.4-5.0) Calcium Level 7.9 MG/DL (8.5-10.1) 8.1 MG/DL (8.5-10.1) Alkaline Phosphatase 266 U/L (45-117) 243 U/L (45-117) 236 U/L (45-117) Aspartate Amino Transf (AST/SGOT) 111 U/L (15-37) 97 U/L (15-37) 97 U/L (15-37) Total Bilirubin 1.2 MG/DL (0.2-1.0) 1.1 MG/DL (0.2-1.0) 1.2 MG/DL (0.2-1.0) Sodium Level 129 MEQ/L (136-145) 133 MEQ/L (136-145) 131 MEQ/L (136-145) Potassium Level 3.4 MEQ/L (3.5-5.1) Chloride Level 89 MEQ/L (98-107) 96 MEQ/L (98-107) 94 MEQ/L (98-107) Hemoglobin 11.2 GM/DL (11.6-15.3) Eosinophils (%) (Auto) 4.9 % (0.0-4.0) 5.9 % (0.0-4.0) Monocytes # (Auto) 1.0 TH/MM3 (0-0.9) 1.2 TH/MM3 (0-0.9) Eosinophils # (Auto) 0.5 TH/MM3 (0-0.4) 0.5 TH/MM3 (0-0.4) Basophils (%) (Auto) 5.8 % (0.0-2.0) Basophils # (Auto) 0.5 TH/MM3 (0-0.2) Neutrophils % (Manual) 77 % (16-70) Eosinophils % 5 % (0-4) Hospital Course Mrs. Isidro is a 47-year-old female. She is here secondary to severe hypokalemia , hyponatremia, and associated weakness. Etiology for her hypokalemia and hyponatremia may be alcohol-related. Through time her electrolytes have been corrected and she is having a regaining of her strength. Presently she is still using a walker to ambulate and she has a walker at home. At this point she can ambulate up to 80 feet and she is medically clear for discharge to home. She will continue an anti-inflammatory and will continue taking supplements to replace her potassium deficits for 5 more days though presently her potassium has corrected. Medically clear for discharge today. Pt Condition on Discharge: Stable Discharge Disposition: Discharge Home Discharge Time: <= 30 minutes Discharge Instructions DIET: Follow Instructions for: As Tolerated, No Restrictions Additional Diet Instructions: Eliminate alcohol intake if possible Activities you can perform: Regular-No Restrictions Follow up Referrals: PCP Follow-up - 2 Weeks New Medications: Multiple Vitamin (Multi-Vitamin Daily) 1 Tab Tab 1 TAB PO DAILY for Nutritional Supplement, #30 TAB 0 Refills Naproxen (Naprosyn) 500 Mg Tab 500 MG PO Q12HR for Inflammation, #10 TAB Potassium Chloride Microencaps (Potassium Chloride Microencaps) 20 Meq Tab 20 MEQ PO Q12HR for Electrolyte Disturbance, #10 TAB Tramadol (Ultram) 50 Mg Tab 50 MG PO Q6H PRN for Pain, #30 TAB Mitchell Butts MD Sep 29, 2017 14:02
== END 2017-09-29 17:46 | disposition home or self-care (01) | DRG 641 ==
LOC: NEPC 10:20 → NEDA 13:10 → NEPGCP 14:29 → OBSVTOIN 09-26 15:56 → N06B 09-26 21:49
PROVIDERS: ADMIT Hospitalist; ATTEND Hospitalist
DX: E87.1 Hypo-osmolality and hyponatremia (principal); N17.9 Acute kidney failure, unspecified; G31.2 Degeneration of nervous system due to alcohol; G62.9 Polyneuropathy, unspecified; F10.230 Alcohol dependence with withdrawal, uncomplicated; K76.0 Fatty (change of) liver, not elsewhere classified; Y90.0 Blood alcohol level of less than 20 mg/100 ml; F17.210 Nicotine dependence, cigarettes, uncomplicated; E87.6 Hypokalemia; R73.9 Hyperglycemia, unspecified; R29.6 Repeated falls; G47.00 Insomnia, unspecified; I10 Essential (primary) hypertension; K74.60 Unspecified cirrhosis of liver; R74.0 Nonspecific elevation of levels of transaminase and lactic acid dehydrogenase [LDH]; R00.0 Tachycardia, unspecified; M25.50 Pain in unspecified joint; Z86.718 Personal history of other venous thrombosis and embolism; Z91.81 History of falling
CPT/HCPCS: 70450; 70551; 80053; 80074; 80307; 81001; 82140; 82607; 83036; 84132; 85007; 85025; 85027; 85610; 85730; 86430; 96374; G0378; G8987-GP; G8988-GP; J2060; J2405; J3480

== ENCOUNTER 2018-01-18 11:10 | Inpatient (IN) | payer MEDICAID ==
[2018-01-18] VITALS (7 sets, daily range): BP systolic 105–123; BP diastolic 60–74; PULSE 86–106; RESP 19–24; TEMP 98.1–100; O2SAT 80–96
[~2018-01-18] VITALS: Ht 162.6 cm; Wt 69.7 kg
[~2018-01-18 11:10] MED LIST changes: -FURO1TAB62 PO; +MULT-65 PO; +NAPR500 PO; -POTA1TAB4 PO; +POTA20TA5 PO; +TRAM50 PO
[2018-01-18 12:37] LABS: AUTOMATED NEUTROPHIL # 5.6 TH/MM3 (1.8-7.7); BASOPHIL # 0.1 TH/MM3 (0-0.2); BASOPHIL % 0.7 % (0.0-2.0); EOSINOPHIL % 0.2 % (0.0-4.0); HEMATOCRIT 39.6 % (35.0-46.0); HEMOGLOBIN 13.6 GM/DL (11.6-15.3); LYMPHOCYTE # 1.6 TH/MM3 (1.0-4.8); MEAN CELL VOLUME 105.9 FL (80.0-100.0); MEAN CORPUSCULAR HEMOGLOBIN 36.4 PG (27.0-34.0); MEAN CORPUSCULAR HGB CONC 34.3 % (32.0-36.0); MEAN PLATELET VOLUME 8.3 FL (7.0-11.0); MONO % 8.7 % (0.0-8.0); MONOCYTE # 0.7 TH/MM3 (0-0.9); NEUT % 70.4 % (16.0-70.0); PLATELET COUNT 288 TH/MM3 (150-450); RED BLOOD COUNT 3.73 MIL/MM3 (4.00-5.30); RED CELL DISTRIBUTION WIDTH 17.2 % (11.6-17.2); WHITE BLOOD COUNT 7.9 TH/MM3 (4.0-11.0)
[2018-01-18 12:44] LABS: PROTHROMBIN TIME - PATIENT 10.6 SEC (9.8-11.6)
[2018-01-18] MEDS ORDERED: GABA100C4 PO (12:50)
[2018-01-18] MEDS ORDERED: PERC10TA27 PO (12:51)
--- NOTE | 2018-01-18 12:54 | RADRPT ---
EXAM DATE/TIME: 01/18/2018 12:31 [facility] COMPARISON: CHEST SINGLE AP, September 13, 2017, 15:45. INDICATIONS : Shortness of breath. MEDICAL HISTORY : Cirrhosis. Deep venous thrombosis. Seizures. SURGICAL HISTORY : None. ENCOUNTER: Initial ACUITY: 1 week PAIN SCORE: 0/10 LOCATION: Bilateral chest FINDINGS: Patchy, fairly diffuse but mid and lower lung predominant air space opacities are seen of both lungs. Some of these areas are mildly nodular. No large or dense consolidation. No pleural effusion or pneu mothorax. Heart size stable, within normal limits. CONCLUSION: Patchy nonspecific bilateral airspace opacities. Tera Alexis MD on January 18, 2018 at 12:51 Board Certified Radiologist. This report was verified electronically.
[2018-01-18 12:59] LABS: BICARBONATE 30.3 MEQ/L (21.0-32.0); CALCIUM 9.1 MG/DL (8.5-10.1); CREATININE 0.55 MG/DL (0.50-1.00); MAGNESIUM 1.6 MG/DL (1.5-2.5)
[2018-01-18 13:03] LABS: TROPONIN I 0.03 NG/ML (0.02-0.05)
[2018-01-18] MEDS ORDERED: IOHEXOL 350 MG/ML 10 ML VIAL (for RAD DIAG) IVCONTRAST ONE (13:43)
--- NOTE | 2018-01-18 13:49 | PD ---
HPI Chief Complaint: Respiratory Distress Time Seen by Provider: 12:44 Travel History International Travel<30 days: No Contact w/Intl Traveler<30days: No Traveled to known affect area: No History of Present Illness HPI Patient is a 39-year-old female presents emergency department for evaluation of cough for the past 48 hours. Patient states she has been short of breath as well. Has a history of cigarette smoking. She is fairly somnolent bordering on lethargic here in the emergency department but does arouse to voice. She states she just does not feel very well. Nothing as far as sputum production, no abdominal pain no nausea vomiting no chest pain. Symptoms moderate, for the past 48 hours, gradually worsening, context as above, associated signs and symptoms as above. PFSH Past Medical History Blood Disorders: No Cancer: No Cardiovascular Problems: No Cirrhosis: Yes Diminished Hearing: No Deep Vein Thrombosis: Yes (left upper arm) Endocrine: No Genitourinary: No Immune Disorder: No Musculoskeletal: No Neurologic: No Reproductive: No Respiratory: No Seizures: Yes ?: Unknown Menopausal: Yes : 1 Para: 1 Miscarriage: 0 : 0 Past Surgical History Section: Yes Other Surgery: Yes () Social History Alcohol Use: Yes (etoh abuse ) Tobacco Use: Yes (3 PPD) Substance Use: No Allergies-Medications (Allergen,Severity, Reaction): Coded Allergies: latex (Verified Allergy, Intermediate, Ulcers, 09/25/17) blisters Reported Meds & Prescriptions Reported Meds & Active Scripts Active Reported Percocet (Oxycodone-Acetaminophen) 10-325 mg Tab 1 Tab PO DAILY PRN Gabapentin 100 Mg Cap 200 Mg PO TID Review of Systems Except as stated in HPI: all other systems reviewed are Neg Physical Exam Narrative GENERAL: Well-developed well-nourished no obvious distress, somnolent but arouses to voice. SKIN: Focused skin assessment warm/dry. HEAD: Atraumatic. Normocephalic. EYES: Pupils equal and round. No scleral icterus. No injection or drainage. ENT: No nasal bleeding or discharge. Mucous membranes pink and moist. NECK: Trachea midline. No JVD. CARDIOVASCULAR: Regular rate and rhythm. No murmur appreciated. RESPIRATORY: No accessory muscle use. Clear to auscultation. Breath sounds equal bilaterally. GASTROINTESTINAL: Abdomen soft, non-tender, nondistended. Hepatic and splenic margins not palpable. MUSCULOSKELETAL: No obvious deformities. No clubbing. No cyanosis. No edema. NEUROLOGICAL: Awake and alert. GCS of 14 (e 3), moves all 4 extremities, 5 out of 5 strength in all 4 extremity's, cranial nerves II through XII grossly intact and nonfocal PSYCHIATRIC: Appropriate mood and affect; insight and judgment normal. Data Data Last Documented VS Vital Signs Date Time Temp Pulse Resp B/P (MAP) Pulse Ox O2 Delivery O2 Flow Rate FiO2 01/18/18 14:58 96 19 123/73 (90) 94 Nasal Cannula 3.00 01/18/18 12:44 98.8 Orders Orders Complete Blood Count With Diff (01/18/18 11:44) Basic Metabolic Panel (Bmp) (01/18/18 11:44) B-Type Natriuretic Peptide (01/18/18 11:44) Act Partial Throm Time (Ptt) (01/18/18 11:44) Prothrombin Time / Inr (Pt) (01/18/18 11:44) Magnesium (Mg) (01/18/18 11:44) Ckmb (Isoenzyme) Profile (01/18/18 11:44) Troponin I (01/18/18 11:44) Influenzae A/B Antigen (01/18/18 11:44) Electrocardiogram (01/18/18 11:44) Chest, Pa & Lat (01/18/18 11:44) Lactic Acid Sepsis Protocol (01/18/18 11:44) Ammonia (01/18/18 12:44) Alcohol (Ethanol) (01/18/18 13:17) Blood Gas Venous (Vbg) (01/18/18 13:17) Ct Pulmonary Angiogram (01/18/18 ) Ceftriaxone Inj (Rocephin Inj) (01/18/18 14:00) Azithromycin Inj (Zithromax Inj) (01/18/18 14:00) Blood Culture (01/18/18 14:01) Ct Brain W/O Iv Contrast(Rout) (01/18/18 ) Admit To Inpatient (01/18/18 ) Code Status (01/18/18 15:31) Vital Signs (Adult) Q4H (01/18/18 15:31) Activity Oob Ad Shanda (01/18/18 15:31) Mirror Silverer / Telemetry .CONTINUOUS (01/18/18 15:31) Intake + Output DEBBIE.QSHIFT (01/18/18 15:31) Notify Dr: Other (01/18/18 15:31) Sodium Chlor 0.9% 1000 Ml Inj (Ns 1000 M (01/18/18 15:31) Sodium Chloride 0.9% Flush (Ns Flush) (01/18/18 15:45) Sodium Chloride 0.9% Flush (Ns Flush) (01/18/18 21:00) Acetaminophen (Tylenol) (01/18/18 15:45) Ondansetron Inj (Zofran Inj) (01/18/18 15:45) Basic Metabolic Panel (Bmp) (01/19/18 06:00) Complete Blood Count With Diff (01/19/18 06:00) Blood Culture (01/18/18 15:31) Urinalysis - C+S If Indicated (01/18/18 15:31) Resp Oxygen Anuel C Titrat 1-4 L (01/18/18 ) Case Management Consult (01/18/18 15:31) Scd Bilateral/Knee High DEBBIE.BID (01/18/18 15:31) Naloxone Inj (Narcan Inj) (01/18/18 15:45) Sennosides (Senokot) (01/18/18 15:45) Bisacodyl Supp (Dulcolax Supp) (01/18/18 15:45) Lactulose Liq (Lactulose Liq) (01/18/18 15:45) Inpatient Certification (01/18/18 ) Drug Screen, Random Urine (01/18/18 15:35) Electrocardiogram (01/18/18 ) Admit Order (Ed Use Only) (01/18/18 ) Albuterol-Ipratropium Neb (Duoneb Neb) (01/18/18 16:00) Guaifenesin Er (Mucinex Er) (01/18/18 21:00) Resp Incentive Spirometry (01/18/18 ) Ceftriaxone Inj (Rocephin Inj) (01/19/18 09:00) Azithromycin Inj (Zithromax Inj) (01/19/18 09:00) Vitamin B12 (01/18/18 15:38) Folate, Serum (01/18/18 15:38) Lipid Profile (01/18/18 15:38) Hemoglobin (Hgb) A1c (01/18/18 15:38) Thyroid Stimulating Hormone (01/18/18 15:38) Free Thyroxine (T4) (01/18/18 15:38) Labs Laboratory Tests Test 01/18/18 12:05 01/18/18 13:00 01/18/18 13:26 01/18/18 13:50 White Blood Count 7.9 TH/MM3 Red Blood Count 3.73 MIL/MM3 Hemoglobin 13.6 GM/DL Hematocrit 39.6 % Mean Corpuscular Volume 105.9 FL Mean Corpuscular Hemoglobin 36.4 PG Mean Corpuscular Hemoglobin Concent 34.3 % Red Cell Distribution Width 17.2 % Platelet Count 288 TH/MM3 Mean Platelet Volume 8.3 FL Neutrophils (%) (Auto) 70.4 % Lymphocytes (%) (Auto) 20.0 % Monocytes (%) (Auto) 8.7 % Eosinophils (%) (Auto) 0.2 % Basophils (%) (Auto) 0.7 % Neutrophils # (Auto) 5.6 TH/MM3 Lymphocytes # (Auto) 1.6 TH/MM3 Monocytes # (Auto) 0.7 TH/MM3 Eosinophils # (Auto) 0.0 TH/MM3 Basophils # (Auto) 0.1 TH/MM3 CBC Comment DIFF FINAL Differential Comment Prothrombin Time 10.6 SEC Prothromb Time International Ratio 1.0 RATIO Activated Partial Thromboplast Time 30.2 SEC Blood Urea Nitrogen 14 MG/DL Creatinine 0.55 MG/DL Random Glucose 106 MG/DL Calcium Level 9.1 MG/DL Magnesium Level 1.6 MG/DL Sodium Level 135 MEQ/L Potassium Level 4.4 MEQ/L Chloride Level 100 MEQ/L Carbon Dioxide Level 30.3 MEQ/L Anion Gap 5 MEQ/L Estimat Glomerular Filtration Rate 118 ML/MIN Lactic Acid Level 1.1 mmol/L Total Creatine Kinase 74 U/L Troponin I 0.03 NG/ML B-Type Natriuretic Peptide 185 PG/ML Ammonia 19 MCMOL/L Ethyl Alcohol Level LESS THAN 3 MG/DL Blood Gas Puncture Site LINE Blood Gas Patient Temperature 98.6 Venous Blood pH 7.33 Venous Blood Partial Pressure CO2 59 mmHg Venous Blood Partial Pressure O2 47 mmHg Venous Blood HCO3 30 mmol/L Venous Blood Oxygen Saturation 78 % Venous Blood Oxygen Content 13.4 Vol % Venous Blood Base Excess 4.3 mmol/L Oxygen Delivery Device NASAL CANNULA Blood Gas Liter Flow 4 L/M MDM Medical Decision Making Medical Screen Exam Complete: Yes Emergency Medical Condition: Yes Differential Diagnosis Pneumonia, hypoxia, altered mental status, hypercapnic respiratory failure peer Narrative Course Patient room to the emergency department, somewhat somnolent she does have evidence for pneumonia, placed on antibiotics. CT head negative, CT PE protocol negative for PE but did show some dispersed infiltrates which given her clinical picture is probably consistent with pneumonia per Last 24 hours Impressions Chest X-Ray 01/18/18 1144 Signed Impressions: Service Date/Time: Thursday, January 18, 2018 12:31 - CONCLUSION: Patchy nonspecific bilateral airspace opacities. Tera Alexis MD Head CT 01/18/18 0000 Signed Impressions: Service Date/Time: Thursday, January 18, 2018 15:31 - CONCLUSION: 1. No evidence of acute intracranial pathology. No masses are identified. Aron Lopez MD CT Angiography 01/18/18 0000 Signed Impressions: Service Date/Time: Thursday, January 18, 2018 13:43 - CONCLUSION: 1. No large central pulmonary embolus identified. 2. There are patchy areas of parenchymal infiltrate involving both lungs predominantly in the upper lobes, the right middle lobe and left lower lobe. The overall appearance is nonspecific. Considerations would include allergic alveolitis, inhalational injury or possibly pneumonia. Mitchell Schwartz MD Patient was ultimately discussed with hospitalist for admission. Started on antibiotics. Diagnosis Primary Impression: Acute respiratory failure with hypoxia Additional Impressions: Pneumonia Altered mental status Admitting Information Admitting Physician Requests: Admit Condition: Stable Oz Emmanuel MD Jan 18, 2018 13:48
[2018-01-18] MEDS ORDERED: AZITHROMYCIN INJ 500 MG in SODIUM CHLOR 0.9% 250 ML INJ 250 ML IV ONE (14:00)
[2018-01-18] MEDS ORDERED: cefTRIAXone INJ 1,000 MG in SODIUM CHLORIDE 0.9% INJ 100 ML IV ONE (14:00)
--- NOTE | 2018-01-18 14:04 | RADRPT ---
EXAM DATE/TIME: 01/18/2018 13:43 [facility] COMPARISON: CT BRAIN W/O CONTRAST, September 25, 2017, 12:35. INDICATIONS : Cough, chest pain IV CONTRAST: 71 cc Omnipaque 350 (iohexol) IV RADIATION DOSE: 14.03 CTDIvol (mGy) MEDICAL HISTORY : Seizures. Diverticulitis. Cirrhosis. SURGICAL HISTORY : None. ENCOUNTER: Initial ACUITY: 1 day PAIN SCALE: 10/10 LOCATION: chest TECHNIQUE: Volumetric scanning of the chest was performed using a pulmonary embolism protocol MIP images were re constructed. Using automated exposure control and adjustment of the mA and/or kV according to patien t size, radiation dose was kept as low as reasonably achievable to obtain optimal diagnostic quality images. DICOM format image data is available electronically for review and comparison. Follow-up recommendations for detected pulmonary nodules are based at a minimum on nodule size and pa tient risk factors according to Fleischner Society Guidelines. FINDINGS: The examination is of moderate diagnostic quality. No large or central pulmonary embolus is seen. The third order branches are not well visualized. The heart is normal in size. There is no pericardial effusion. Examination the pulmonary parenchyma demonstrates patchy areas of infiltrate involving both upper lob es and the left lower lobe. There is an area of consolidation along the lateral aspect of the left destini ng base. The overall appearance of this is non-specific. The limited portions of upper abdomen visualized are unremarkable. The visualized osseous structures are grossly intact. CONCLUSION: 1. No large central pulmonary embolus identified. 2. There are patchy areas of parenchymal infiltrate involving both lungs predominantly in the upper l obes, the right middle lobe and left lower lobe. The overall appearance is nonspecific. Consideration s would include allergic alveolitis, inhalational injury or possibly pneumonia. Mitchell Schwartz MD on January 18, 2018 at 13:58 Board Certified Radiologist. This report was verified electronically.
--- NOTE | 2018-01-18 15:34 | HHI.HP ---
[facility] Admission Diagnosis Diagnoses: Chief Complaint: Shortness of breath Travel History International Travel<30 Days: No Contact w/Intl Traveler <30 Da: No Traveled to Known Affected Are: No History of Present Illness This is a pleasant 39 y/o Female who came to ER with cough for two days before coming to ER, shortness of breath, has Tobacco dependence Lethargic on admission as per ER physician, She states she just does not feel very well. Nothing as far as sputum production, no abdominal pain no nausea vomiting no chest pain. Symptoms moderate, for the past 48 hours , gradually worsening, at this time seen in Emergency room, the patient is alert and oriented, Unfortunately was not performed yet a drug screen was asked and also discussed with ER physician he asked for CT brain and following at this time talking in full sentences asking for full diet will start regular diet. Review of Systems Constitutional: DENIES: Fever, Chills, Change in appetite Endocrine: DENIES: Heat/cold intolerance Eyes: DENIES: Blurred vision, Eye pain Respiratory: COMPLAINS OF: Shortness of breath Except as stated in HPI: all other systems reviewed are Neg Past Family Social History Past Medical History Cirrhosis DVT of Left upper arm Seizure disorder Tobacco dependence Alcoholism until 76 days ago she is at [facility] COPD Past Surgical History C section Reported Medications Reported Meds & Active Scripts Active Reported Percocet (Oxycodone-Acetaminophen) 10-325 mg Tab 1 Tab PO DAILY PRN Gabapentin 100 Mg Cap 200 Mg PO TID Allergies: Coded Allergies: latex (Verified Allergy, Intermediate, Ulcers, 09/25/17) blisters Active Ordered Medications Current Medications Medications (Trade) Dose Ordered Sig/Dee Route Start Time Stop Time Status Last Admin Sodium Chloride 1,000 ml @ 100 mls/hr Q10H IV 01/18/18 15:31 (NS Flush) 2 ml UNSCH PRN IV FLUSH 01/18/18 15:45 (NS Flush) 2 ml BID IV FLUSH 01/18/18 21:00 (Tylenol) 650 mg Q4H PRN PO 01/18/18 15:45 (Zofran Inj) 4 mg Q6H PRN IVP 01/18/18 15:45 (Narcan Inj) 0.4 mg UNSCH PRN IV PUSH 01/18/18 15:45 (Senokot) 17.2 mg Q12H PRN PO 01/18/18 15:45 (Dulcolax Supp) 10 mg DAILY PRN RECTAL 01/18/18 15:45 (Lactulose Liq) 30 ml DAILY PRN PO 01/18/18 15:45 (Duoneb Neb) 1 ampule Q4HR NEB NEB 01/18/18 16:00 01/18/18 15:58 (Mucinex Er) 600 mg BID PO 01/18/18 21:00 Ceftriaxone Sodium 1000 mg/ Sodium Chloride 100 ml @ 200 mls/hr Q24H IV 01/19/18 09:00 Azithromycin 500 mg/Sodium Chloride 250 ml @ 250 mls/hr Q24H IV 01/19/18 09:00 Family History Asked and denied. Social History Homeless EtOH abuse as per patient she is sober for the last 76 days. Tobacco dependence she was using one pack daily now one pack every three days. Physical Exam Vital Signs Vital Signs Date Time Temp Pulse Resp B/P (MAP) Pulse Ox O2 Delivery O2 Flow Rate FiO2 01/18/18 14:58 96 19 123/73 (90) 94 Nasal Cannula 3.00 01/18/18 12:44 98.8 98 22 113/74 (87) 96 Nasal Cannula 3.00 01/18/18 11:41 100.0 106 22 113/60 (77) 80 Physical Exam GENERAL: Well developed, in no acute distress. SKIN: Focused skin assessment warm/dry. multiple tattoos. HEAD: Atraumatic. Normocephalic. EYES: Pupils equal and round. No scleral icterus. No injection or drainage. ENT: No nasal bleeding or discharge. Mucous membranes pink and moist. NECK: Trachea midline. No JVD. CARDIOVASCULAR: Regular rate and rhythm. No murmur appreciated. RESPIRATORY: Decreased breath sounds bilateral, Has moderate Expiratory wheezing , some harsh sounds. GASTROINTESTINAL: Abdomen soft, non-tender, nondistended. Hepatic and splenic margins not palpable. MUSCULOSKELETAL: No obvious deformities. No clubbing. No cyanosis. No edema. NEUROLOGICAL: Awake and alert. No focal deficits. PSYCHIATRIC: Appropriate mood and affect; insight and judgment normal. Laboratory Laboratory Tests Test 01/18/18 12:05 01/18/18 13:00 01/18/18 13:26 01/18/18 13:50 White Blood Count 7.9 Red Blood Count 3.73 Hemoglobin 13.6 Hematocrit 39.6 Mean Corpuscular Volume 105.9 Mean Corpuscular Hemoglobin 36.4 Mean Corpuscular Hemoglobin Concent 34.3 Red Cell Distribution Width 17.2 Platelet Count 288 Mean Platelet Volume 8.3 Neutrophils (%) (Auto) 70.4 Lymphocytes (%) (Auto) 20.0 Monocytes (%) (Auto) 8.7 Eosinophils (%) (Auto) 0.2 Basophils (%) (Auto) 0.7 Neutrophils # (Auto) 5.6 Lymphocytes # (Auto) 1.6 Monocytes # (Auto) 0.7 Eosinophils # (Auto) 0.0 Basophils # (Auto) 0.1 CBC Comment DIFF FINAL Differential Comment Prothrombin Time 10.6 Prothromb Time International Ratio 1.0 Activated Partial Thromboplast Time 30.2 Blood Urea Nitrogen 14 Creatinine 0.55 Random Glucose 106 Calcium Level 9.1 Magnesium Level 1.6 Sodium Level 135 Potassium Level 4.4 Chloride Level 100 Carbon Dioxide Level 30.3 Anion Gap 5 Estimat Glomerular Filtration Rate 118 Lactic Acid Level 1.1 Total Creatine Kinase 74 Troponin I 0.03 B-Type Natriuretic Peptide 185 Ammonia 19 Ethyl Alcohol Level LESS THAN 3 Blood Gas Puncture Site LINE Blood Gas Patient Temperature 98.6 Venous Blood pH 7.33 Venous Blood Partial Pressure CO2 59 Venous Blood Partial Pressure O2 47 Venous Blood HCO3 30 Venous Blood Oxygen Saturation 78 Venous Blood Oxygen Content 13.4 Venous Blood Base Excess 4.3 Oxygen Delivery Device NASAL CANNULA Blood Gas Liter Flow 4 Date/Time Source Procedure Growth Status 01/18/18 14:30 Blood Peripheral Aerobic Blood Culture Pending Received 01/18/18 14:30 Blood Peripheral Anaerobic Blood Culture Pending Received 01/18/18 12:05 Nasal Aspirate Influenza Types A,B Antigen (FÉLIX) - Final NEGATIVE FOR FLU A AND B ANTIGEN.... Complete Result Diagram: 01/18/18 1205 01/18/18 1205 Imaging Last Impressions Chest X-Ray 01/18/18 1144 Signed Impressions: Service Date/Time: Thursday, January 18, 2018 12:31 - CONCLUSION: Patchy nonspecific bilateral airspace opacities. Tera Alexis MD CT Angiography 01/18/18 0000 Signed Impressions: Service Date/Time: Thursday, January 18, 2018 13:43 - CONCLUSION: 1. No large central pulmonary embolus identified. 2. There are patchy areas of parenchymal infiltrate involving both lungs predominantly in the upper lobes, the right middle lobe and left lower lobe. The overall appearance is nonspecific. Considerations would include allergic alveolitis, inhalational injury or possibly pneumonia. Mitchell Schwartz MD Caprini VTE Risk Assessment Caprini VTE Risk Assessment: Mod/High Risk (score >= 2) Caprini Risk Assessment Model Point Value = 1 Point Value = 2 Point Value = 3 Point Value = 5 Age 41-60 Minor surgery BMI > 25 kg/m2 Swollen legs Varicose veins or History of unexplained or recurrent spontaneous Oral contraceptives or hormone replacement Sepsis (< 1 month) Serious lung disease, including pneumonia (< 1 month) Abnormal pulmonary function Acute myocardial infarction Congestive heart failure (< 1 month) History of inflammatory bowel disease Medical patient at bed rest Age 61-74 Arthroscopic surgery Major open surgery (> 45 min) Laparoscopic surgery (> 45 min) Malignancy Confined to bed (> 72 hours) Immobilizing plaster cast Central venous access Age >= 75 History of VTE Family history of VTE Factor V Leiden Prothrombin [id number] Lupus anticoagulant Anticardiolipin antibodies Elevated serum homocysteine Heparin-induced thrombocytopenia Other congenital or acquired thrombophilia Stroke (< 1 month) Elective arthroplasty Hip, pelvis, or leg fracture Acute spinal cord injury (< 1 month) Prophylaxis Regimen Total Risk Factor Score Risk Level Prophylaxis Regimen 0-1 Low Early ambulation 2 Moderate Order ONE of the following: *Sequential Compression Device (SCD) *Heparin 5000 units SQ BID 3-4 Higher Order ONE of the following medications: *Heparin 5000 units SQ TID *Enoxaparin/Lovenox 40 mg SQ daily (WT < 150 kg, CrCl > 30 mL/min) *Enoxaparin/Lovenox 30 mg SQ daily (WT < 150 kg, CrCl > 10-29 mL/min) *Enoxaparin/Lovenox 30 mg SQ BID (WT < 150 kg, CrCl > 30 mL/min) AND/OR *Sequential Compression Device (SCD) 5 or more Highest Order ONE of the following medications: *Heparin 5000 units SQ TID (Preferred with Epidurals) *Enoxaparin/Lovenox 40 mg SQ daily (WT < 150 kg, CrCl > 30 mL/min) *Enoxaparin/Lovenox 30 mg SQ daily (WT < 150 kg, CrCl > 10-29 mL/min) *Enoxaparin/Lovenox 30 mg SQ BID (WT < 150 kg, CrCl > 30 mL/min) AND *Sequential Compression Device (SCD) Assessment and Plan Assessment and Plan 1. Acute respiratory failure with Hypercapnia and Hypoxemia, giving oxygen to keep oxygen saturation over 92%, continue Bronchodilator, Mucolytic and incentive spirometry, Multifactorial , Pneumonia, and COPD 2. Pneumonia to continue Azithromycin, Ceftriaxone, following, blood culture, sputum culture, legionella antigen and pneumococcal antigen. 3. Metabolic Encephalopathy Improved reduce narcotics and 4. Cirrhosis secondary to alcoholism as per patient has not been drinking for the last 76 days she is at [facility] 5. DVT of the left upper arm by history 6. Seizure disorder by history. re start Gabapentin 7. Tobacco dependence strongly recommended to stop smoking 8. COPD exacerbation to continue Bronchodilator, Mucolytic and incentive Spirometry. DVT prophylaxis with Lovenox. Gastric protection with Protonix. Code Status Full Code. Discussed Condition With Oz Emmanuel MD Physician Certification 2 Midnight Certification Type: Admission for Inpatient Services Order for Inpatient Services The services are ordered in accordance with Medicare regulations or non- Medicare payer requirements, as applicable. In the case of services not specified as inpatient-only, they are appropriately provided as inpatient services in accordance with the 2-midnight benchmark. Estimated LOS (days): 3 days is the estimated time the patient will need to remain in the hospital, assuming treatment plan goals are met and no additional complications. Post-Hospital Plan: Home Curtis Gutierrez MD Jan 18, 2018 15:34
[2018-01-18] MEDS ORDERED: ONDANSETRON HCL 4 MG/2 ML VIAL IVP PRN (15:45)
[2018-01-18] MEDS ORDERED: LACTULOSE SYRUP 20 GM/30 ML CUP PO PRN (15:45)
[2018-01-18] MEDS ORDERED: SENNOSIDES 8.6 MG TAB PO PRN (15:45)
[2018-01-18] MEDS ORDERED: BISACODYL 10 MG SUPP RECTAL PRN (15:45)
[2018-01-18] MEDS ORDERED: NALOXONE HCL 0.4 MG/ML AMP IV PUSH PRN (15:45)
[2018-01-18] MEDS ORDERED: ACETAMINOPHEN 325 MG TAB PO PRN (15:45)
[2018-01-18] MEDS ORDERED: SODIUM CHLORIDE 0.9% FLUSH 10 ML FLUSH IV FLUSH PRN (15:45)
[2018-01-18] MEDS: RESP: ALBUTEROL 2.5 MG/IPRATROPIUM 0.5 MG NEB (SCH) NEB ×2 (15:58→20:38)
--- NOTE | 2018-01-18 16:15 | RADRPT ---
EXAM DATE/TIME: 01/18/2018 15:31 [facility] COMPARISON: CT BRAIN W/O CONTRAST, September 25, 2017, 12:35. INDICATIONS : Altered mental status RADIATION DOSE: 35.47 CTDIvol (mGy) MEDICAL HISTORY : Seizures. Deep venous thrombosis. SURGICAL HISTORY : None. ENCOUNTER: Initial ACUITY: 1 day PAIN SCALE: 0/10 LOCATION: cranial TECHNIQUE: Multiple contiguous axial images were obtained of the head. Using automated exposure control and adj ustment of the mA and/or kV according to patient size, radiation dose was kept as low as reasonably a chievable to obtain optimal diagnostic quality images. DICOM format image data is available electro nically for review and comparison. FINDINGS: CEREBRUM: The ventricles are normal for age. No evidence of midline shift, mass lesion, hemorrhage or acute in farction. No extra-axial fluid collections are seen. POSTERIOR FOSSA: The cerebellum and brainstem are intact. The 4th ventricle is midline. The cerebellopontine angle i s unremarkable. EXTRACRANIAL: The visualized portion of the orbits is intact. SKULL: The calvaria is intact. No evidence of skull fracture. CONCLUSION: 1. No evidence of acute intracranial pathology. No masses are identified. Aron Lopez MD on January 18, 2018 at 16:12 Board Certified Radiologist. This report was verified electronically.
[2018-01-18] MEDS: SODIUM CHLOR 0.9% 1000 ML INJ 1,000 ML IV SCH ×2 (16:20→18:33)
[2018-01-18] MEDS: ENOXAPARIN SODIUM 40 MG/0.4 ML SYRINGE SQ SCH (17:49)
[2018-01-18] MEDS: methylPREDNISolone SOD SUCC 40 MG/1 ML VIAL IV PUSH SCH ×2 (17:50→20:51)
[2018-01-18] MEDS: SODIUM CHLORIDE 0.9% FLUSH 10 ML FLUSH IV FLUSH SCH (20:51)
[2018-01-18] MEDS: guaiFENesin E.R. 600 MG TAB PO SCH (20:51)
[2018-01-18 22:25] LABS: CHOLESTEROL/ HDL RATIO 3.55 RATIO
[2018-01-18 22:49] LABS: FOLATE 3.6 NG/ML (3.1-17.5); FREE T4 1.12 NG/DL (0.76-1.46)
[2018-01-19] VITALS (17 sets, daily range): BP systolic 101–124; BP diastolic 60–69; PULSE 69–92; RESP 18–21; TEMP 97.5–98.7; O2SAT 92–100
[2018-01-19] MEDS: RESP: ALBUTEROL 2.5 MG/IPRATROPIUM 0.5 MG NEB (SCH) NEB ×7 (00:13→23:52)
[2018-01-19] MEDS: SODIUM CHLOR 0.9% 1000 ML INJ 1,000 ML IV SCH (02:24)
[2018-01-19] MEDS: methylPREDNISolone SOD SUCC 40 MG/1 ML VIAL IV PUSH SCH ×3 (05:35→20:51)
[2018-01-19 07:20] LABS: AUTOMATED NEUTROPHIL # 3.5 TH/MM3 (1.8-7.7); BASOPHIL % 0.5 % (0.0-2.0); HEMATOCRIT 34.9 % (35.0-46.0); HEMOGLOBIN 11.7 GM/DL (11.6-15.3); LYMPH % 18.1 % (9.0-44.0); LYMPHOCYTE # 0.8 TH/MM3 (1.0-4.8); MEAN CELL VOLUME 106.9 FL (80.0-100.0); MEAN CORPUSCULAR HEMOGLOBIN 35.9 PG (27.0-34.0); MEAN CORPUSCULAR HGB CONC 33.6 % (32.0-36.0); MEAN PLATELET VOLUME 8.6 FL (7.0-11.0); MONO % 6.2 % (0.0-8.0); MONOCYTE # 0.3 TH/MM3 (0-0.9); NEUT % 75.2 % (16.0-70.0); PLATELET COUNT 215 TH/MM3 (150-450); RED BLOOD COUNT 3.27 MIL/MM3 (4.00-5.30); RED CELL DISTRIBUTION WIDTH 16.9 % (11.6-17.2); WHITE BLOOD COUNT 4.7 TH/MM3 (4.0-11.0)
[2018-01-19 07:49] LABS: BICARBONATE 27.2 MEQ/L (21.0-32.0); CALCIUM 8.6 MG/DL (8.5-10.1); CREATININE 0.48 MG/DL (0.50-1.00)
[2018-01-19] MEDS: guaiFENesin E.R. 600 MG TAB PO SCH ×2 (08:59→20:51)
[2018-01-19] MEDS: cefTRIAXone INJ 1,000 MG in SODIUM CHLORIDE 0.9% INJ 100 ML IV SCH (08:59)
[2018-01-19] MEDS: SODIUM CHLORIDE 0.9% FLUSH 10 ML FLUSH IV FLUSH SCH ×2 (09:00→20:52)
[2018-01-19] MEDS: AZITHROMYCIN INJ 500 MG in SODIUM CHLOR 0.9% 250 ML INJ 250 ML IV SCH (09:55)
[2018-01-19] MEDS: ENOXAPARIN SODIUM 40 MG/0.4 ML SYRINGE SQ SCH (14:28)
--- NOTE | 2018-01-19 15:23 | HHI.PR ---
Subjective Remarks awake and alert cughing but dry denies fever or chills complainsed of shortnes of breath rstarted 2-3 days ago history of chronic neuropathy- etio " alcohol" smoker quit recently sttes history of alcohol use q- has been clean for 85 days Objective Vitals Vital Signs Date Time Temp Pulse Resp B/P (MAP) Pulse Ox O2 Delivery O2 Flow Rate FiO2 01/19/18 12:00 98.2 92 18 112/63 (79) 93 01/19/18 11:44 96 Nasal Cannula 3.00 01/19/18 09:04 93 Nasal Cannula 4.00 01/19/18 08:30 Nasal Cannula 3.00 01/19/18 08:00 98.4 79 18 116/66 (83) 93 01/19/18 04:05 95 Nasal Cannula 4.00 01/19/18 04:00 Nasal Cannula 3.00 01/19/18 04:00 97.5 84 20 101/60 (74) 92 01/19/18 03:57 69 01/19/18 00:32 88 01/19/18 00:15 94 Nasal Cannula 4.00 01/19/18 00:00 88 01/19/18 00:00 Nasal Cannula 3.00 01/19/18 00:00 97.8 85 21 124/66 (85) 94 01/18/18 20:44 95 Nasal Cannula 4.00 01/18/18 20:00 98.1 86 20 105/69 (81) 86 01/18/18 20:00 Nasal Cannula 3.00 01/18/18 18:30 98.9 92 24 116/71 (86) 94 01/18/18 18:19 01/18/18 15:58 94 Nasal Cannula 4.00 I/O 01/18/18 01/18/18 01/18/18 01/19/18 01/19/18 01/19/18 07:00 15:00 23:00 07:00 15:00 23:00 Intake Total 100 ml 250 ml 1000 ml Balance 100 ml 250 ml 1000 ml Intake Oral 0 ml IV Total 100 ml 250 ml 1000 ml # Voids 1 # Bowel Movements 1 Result Diagram: 01/19/18 0650 01/19/18 0650 Imaging Last Impressions Chest X-Ray 01/18/18 1144 Signed Impressions: Service Date/Time: Thursday, January 18, 2018 12:31 - CONCLUSION: Patchy nonspecific bilateral airspace opacities. Tera Alexis MD Head CT 01/18/18 0000 Signed Impressions: Service Date/Time: Thursday, January 18, 2018 15:31 - CONCLUSION: 1. No evidence of acute intracranial pathology. No masses are identified. Aron Lopez MD CT Angiography 01/18/18 0000 Signed Impressions: Service Date/Time: Thursday, January 18, 2018 13:43 - CONCLUSION: 1. No large central pulmonary embolus identified. 2. There are patchy areas of parenchymal infiltrate involving both lungs predominantly in the upper lobes, the right middle lobe and left lower lobe. The overall appearance is nonspecific. Considerations would include allergic alveolitis, inhalational injury or possibly pneumonia. Mitchell Schwartz MD Objective Remarks awake and alert, oriented x 3, able to give full history anciteric no throat exudates lungs- with rhonchi regular rhythm abdomen soft extremities no edema neuro exam non focal A/P Assessment and Plan 47 years old female Acute respiratory failure with Hypercapnia and Hypoxemia, giving oxygen to keep oxygen saturation over 92%, Underlying COPD in exacerbation continue Bronchodilator, Mucolytic and incentive spirometry, Multifactorial , Pneumonia, and COPD continue steroids Pneumonia community acquired to continue Azithromycin, Ceftriaxone, following, blood culture, sputum culture, legionella antigen and pneumococcal antigen. Metabolic Encephalopathy Improved reduce narcotics - MS awake and alert Cirrhosis secondary to alcoholism as per patient has not been drinking for the last 76 days she is at AA= c;[place] for 85 days very motivated History DVT of the left upper arm by history Seizure disorder by history. re start Gabapentin Tobacco dependence strongly recommended to stop smoking - Nicotine patch DVT prophylaxis with Lovenox. Gastric protection with Protonix. Increase activity Ramandeep Ash MD Jan 19, 2018 15:23
--- NOTE | 2018-01-19 16:46 | EKG ---
Date Performed: 01/18/2018 Time Performed: 11:53:55 PTAGE: 47 years EKG: SINUS TACHYCARDIA Since previous tracing, no significant change noted ABNORMAL RHYTHM ECG PREVIOUS TRACING : 09/13/2017 15.37 DOCTOR: Mendez Lantigua Interpretating Date/Time 01/19/2018 16:43:35
[2018-01-19 17:57] LABS: HEMOGLOBIN A1C 4.9 % (4.3-6.0)
[2018-01-20] VITALS (12 sets, daily range): BP systolic 114–139; BP diastolic 64–81; PULSE 57–87; RESP 16–18; TEMP 97.4–98.3; O2SAT 93–99
[2018-01-20] MEDS: SODIUM CHLOR 0.9% 1000 ML INJ 1,000 ML IV SCH ×2 (00:55→08:52)
[2018-01-20] MEDS: RESP: ALBUTEROL 2.5 MG/IPRATROPIUM 0.5 MG NEB (SCH) NEB ×5 (03:46→20:54)
[2018-01-20] MEDS: methylPREDNISolone SOD SUCC 40 MG/1 ML VIAL IV PUSH SCH ×3 (05:16→20:33)
[2018-01-20] MEDS: cefTRIAXone INJ 1,000 MG in SODIUM CHLORIDE 0.9% INJ 100 ML IV SCH (08:48)
[2018-01-20] MEDS: SODIUM CHLORIDE 0.9% FLUSH 10 ML FLUSH IV FLUSH SCH ×2 (08:48→20:39)
[2018-01-20] MEDS: guaiFENesin E.R. 600 MG TAB PO SCH ×2 (08:48→20:30)
[2018-01-20] MEDS: MULTIVITAMIN TAB PO SCH (08:49)
[2018-01-20] MEDS: AZITHROMYCIN INJ 500 MG in SODIUM CHLOR 0.9% 250 ML INJ 250 ML IV SCH (09:34)
--- NOTE | 2018-01-20 14:25 | HHI.PR ---
Subjective Remarks still coughing a lot- productive of yellowish sputum, up and ambulating gradually no nausea or vomiting Objective Vitals Vital Signs Date Time Temp Pulse Resp B/P (MAP) Pulse Ox O2 Delivery O2 Flow Rate FiO2 01/20/18 12:03 97.6 83 16 120/64 (82) 96 01/20/18 12:00 87 01/20/18 09:16 99 Nasal Cannula 3.00 01/20/18 08:03 97.7 60 16 117/64 (81) 96 01/20/18 08:00 99 Nasal Cannula 3.00 01/20/18 04:39 71 01/20/18 04:00 Nasal Cannula 3.00 01/20/18 03:50 97.4 74 18 114/69 (84) 98 01/20/18 00:00 71 01/19/18 23:40 98.2 70 18 101/62 (75) 96 01/19/18 20:00 Nasal Cannula 3.00 01/19/18 20:00 86 01/19/18 19:44 98.7 85 20 118/68 (85) 93 01/19/18 19:36 100 Nasal Cannula 3.00 01/19/18 16:43 77 01/19/18 16:30 98.4 87 18 119/69 (86) 95 01/19/18 16:00 98.4 87 18 119/69 (86) 95 I/O 01/19/18 01/19/18 01/19/18 01/20/18 01/20/18 01/20/18 07:00 15:00 23:00 07:00 15:00 23:00 Intake Total 1000 ml 380 ml 1745 ml Output Total 800 ml Balance 1000 ml -420 ml 1745 ml Intake Oral 0 ml 380 ml 240 ml IV Total 1000 ml 1505 ml Output Urine Total 800 ml # Voids 1 1 # Bowel Movements 1 2 0 Result Diagram: 01/19/18 0650 01/19/18 0650 Imaging Last Impressions Chest X-Ray 01/18/18 1144 Signed Impressions: Service Date/Time: Thursday, January 18, 2018 12:31 - CONCLUSION: Patchy nonspecific bilateral airspace opacities. Tera Alexis MD Head CT 01/18/18 0000 Signed Impressions: Service Date/Time: Thursday, January 18, 2018 15:31 - CONCLUSION: 1. No evidence of acute intracranial pathology. No masses are identified. Aron Lopez MD CT Angiography 01/18/18 0000 Signed Impressions: Service Date/Time: Thursday, January 18, 2018 13:43 - CONCLUSION: 1. No large central pulmonary embolus identified. 2. There are patchy areas of parenchymal infiltrate involving both lungs predominantly in the upper lobes, the right middle lobe and left lower lobe. The overall appearance is nonspecific. Considerations would include allergic alveolitis, inhalational injury or possibly pneumonia. Mitchell Schwartz MD Objective Remarks awake and alert, oriented x 3, able to give full history anicteric no throat exudates lungs- still with rhonchi, good air entry regular rhythm abdomen soft extremities no edema neuro exam non focal A/P Assessment and Plan 47 years old female Acute respiratory failure with Hypercapnia and Hypoxemia, giving oxygen to keep oxygen saturation over 92%, Underlying COPD in exacerbation continue Bronchodilator, Mucolytic and incentive spirometry, Multifactorial , Pneumonia, and COPD continue steroids- decrease to q 12 will do walk test prior to DC if qualifies for home 02 Pneumonia community acquired to continue Azithromycin, Ceftriaxone blood culture, sputum culture, legionella antigen- negative pneumococcal antigen.- negative Metabolic Encephalopathy Improved reduce narcotics - MS awake and alert- Resolved Cirrhosis secondary to alcoholism as per patient has not been drinking - she is at AA= clean for 85 days very motivated History DVT of the left upper arm by history Seizure disorder by history. restart Gabapentin Tobacco dependence strongly recommended to stop smoking - Nicotine patch Deconditioning- PT daily DVT prophylaxis with Lovenox. Gastric protection with Protonix. will need home health care vs OP PT per patient she lives with her Mom Increase activity Ramandeep Ash MD Jan 20, 2018 14:25
[2018-01-20] MEDS: ENOXAPARIN SODIUM 40 MG/0.4 ML SYRINGE SQ SCH (16:50)
[2018-01-21] VITALS (11 sets, daily range): BP systolic 112–131; BP diastolic 66–78; PULSE 58–95; RESP 12–20; TEMP 98.1–98.8; O2SAT 94–98
[2018-01-21] MEDS: RESP: ALBUTEROL 2.5 MG/IPRATROPIUM 0.5 MG NEB (SCH) NEB ×6 (00:28→20:00)
[2018-01-21] MEDS: AZITHROMYCIN INJ 500 MG in SODIUM CHLOR 0.9% 250 ML INJ 250 ML IV SCH (08:00)
[2018-01-21] MEDS: methylPREDNISolone SOD SUCC 40 MG/1 ML VIAL IV PUSH SCH (08:00)
[2018-01-21] MEDS: SODIUM CHLORIDE 0.9% FLUSH 10 ML FLUSH IV FLUSH SCH ×2 (08:00→20:19)
[2018-01-21] MEDS: cefTRIAXone INJ 1,000 MG in SODIUM CHLORIDE 0.9% INJ 100 ML IV SCH (08:01)
[2018-01-21] MEDS: guaiFENesin E.R. 600 MG TAB PO SCH ×2 (08:01→20:19)
[2018-01-21] MEDS: MULTIVITAMIN TAB PO SCH (08:01)
--- NOTE | 2018-01-21 15:08 | HHI.PR ---
Subjective Remarks Follow up for COPD exacerbation, Pneumonia. Patient is doing well. However, she continues to cough a lot. No fever, chills. Currently on nasal cannula. Objective Vitals Vital Signs Date Time Temp Pulse Resp B/P (MAP) Pulse Ox O2 Delivery O2 Flow Rate FiO2 01/21/18 14:20 2.00 01/21/18 12:00 Nasal Cannula 2.00 01/21/18 11:49 95 01/21/18 11:30 98.5 76 13 128/72 (90) 95 01/21/18 09:03 96 Nasal Cannula 2.00 01/21/18 08:07 62 01/21/18 08:00 98.3 68 12 131/75 (93) 98 01/21/18 08:00 Nasal Cannula 2.00 01/21/18 04:00 98.2 71 16 120/78 (92) 95 01/21/18 04:00 64 01/21/18 04:00 Nasal Cannula 3.00 01/21/18 00:00 Nasal Cannula 3.00 01/21/18 00:00 98.3 77 16 116/77 (90) 94 01/21/18 00:00 58 01/20/18 20:55 93 Nasal Cannula 2.00 01/20/18 20:00 57 01/20/18 20:00 Nasal Cannula 3.00 01/20/18 19:30 98.3 58 18 135/81 (99) 97 01/20/18 16:10 98.3 64 18 139/74 (95) 97 01/20/18 15:53 69 I/O 01/20/18 01/20/18 01/20/18 01/21/18 01/21/18 01/21/18 06:59 14:59 22:59 06:59 14:59 22:59 Intake Total 1745 ml 820 ml Output Total 1200 ml 500 ml Balance 1745 ml -380 ml -500 ml Intake Oral 240 ml 820 ml IV Total 1505 ml Output Urine Total 1200 ml 500 ml # Voids 1 3 # Bowel Movements 0 0 Result Diagram: 01/19/18 0650 01/19/18 0650 Imaging Last Impressions Chest X-Ray 01/18/18 1144 Signed Impressions: Service Date/Time: Thursday, January 18, 2018 12:31 - CONCLUSION: Patchy nonspecific bilateral airspace opacities. Tera Alexis MD Head CT 01/18/18 0000 Signed Impressions: Service Date/Time: Thursday, January 18, 2018 15:31 - CONCLUSION: 1. No evidence of acute intracranial pathology. No masses are identified. Aron Lopez MD CT Angiography 01/18/18 0000 Signed Impressions: Service Date/Time: Thursday, January 18, 2018 13:43 - CONCLUSION: 1. No large central pulmonary embolus identified. 2. There are patchy areas of parenchymal infiltrate involving both lungs predominantly in the upper lobes, the right middle lobe and left lower lobe. The overall appearance is nonspecific. Considerations would include allergic alveolitis, inhalational injury or possibly pneumonia. Mitchell Schwartz MD Objective Remarks GENERAL: Alert, Oriented x 3, NAD. SKIN: Warm and dry. HEAD: Normocephalic. EYES: No scleral icterus. No injection or drainage. NECK: Supple, trachea midline. No JVD or lymphadenopathy. CARDIOVASCULAR: Regular rate and rhythm without murmurs, gallops, or rubs. RESPIRATORY: Moderate air entry, mild wheezes, coarse breath sounds. No accessory muscle use. GASTROINTESTINAL: Abdomen soft, non-tender, nondistended. MUSCULOSKELETAL: No cyanosis, or edema. BACK: Nontender without obvious deformity. No CVA tenderness. Procedures None. A/P Problem List: (1) Sepsis ICD Code: A41.9 - Sepsis, unspecified organism (2) Acute respiratory failure with hypoxia and hypercapnia ICD Code: J96.01 - Acute respiratory failure with hypoxia; J96.02 - Acute respiratory failure with hypercapnia (3) Pneumonia ICD Code: J18.9 - Pneumonia, unspecified organism Status: Acute Assessment and Plan Ms. Isidro is a pleasant 37 year old female who was admitted to the hospital on due to dyspnea. Work up indicated bilateral pneumonia and she met sepsis criteria. Sepsis (HR 106, RR 22, Pneumonia). COPD exacerbation Community Acquired pneumonia Will d/c Azithromycin and Ceftriaxone and start patient on Levaquin 750mg PO Qday. Start Symbicort and continue DuoNeb scheduled and PRN. Prednisone 20mg BID. Will try to wean off O2 requirements. Metabolic encephalopathy -resolved. Seizure disorder - Continue Gabapentin. Tobacco dependence - patient counselled. Full code. Lovenox. Francia Barrett DO Jan 21, 2018 15:08
[2018-01-21] MEDS: ENOXAPARIN SODIUM 40 MG/0.4 ML SYRINGE SQ SCH (16:59)
[2018-01-21] MEDS ORDERED: RESP: ALBUTEROL 2.5 MG/IPRATROPIUM 0.5 MG NEB (PRN) NEB (19:00)
[2018-01-21] MEDS: predniSONE 20 MG TAB PO SCH (20:19)
[2018-01-21] MEDS: BUDESONIDE-FORMOTEROL 160/4.5 MCG INHALER INH SCH (21:00)
[2018-01-22] VITALS (7 sets, daily range): BP systolic 116–145; BP diastolic 61–85; PULSE 63–80; RESP 13–18; TEMP 97.9–98.7; O2SAT 93–98
[2018-01-22] MEDS: SODIUM CHLORIDE 0.9% FLUSH 10 ML FLUSH IV FLUSH SCH (07:14)
[2018-01-22] MEDS: RESP: ALBUTEROL 2.5 MG/IPRATROPIUM 0.5 MG NEB (SCH) NEB ×2 (08:44→12:32)
[2018-01-22] MEDS: MULTIVITAMIN TAB PO SCH (08:58)
[2018-01-22] MEDS: guaiFENesin E.R. 600 MG TAB PO SCH (08:58)
[2018-01-22] MEDS: predniSONE 20 MG TAB PO SCH (08:58)
[2018-01-22] MEDS: BUDESONIDE-FORMOTEROL 160/4.5 MCG INHALER INH SCH (08:58)
[2018-01-22] MEDS ORDERED: LEVOFLOXACIN 750 MG TAB PO SCH (09:00)
[2018-01-22] MEDS ORDERED: VENTAER INH (14:08)
[2018-01-22] MEDS ORDERED: Budeson-Formot 160-4.5 Mcg Inh INH (14:08)
[2018-01-22] MEDS ORDERED: LACTTAB8 PO (14:08)
[2018-01-22] MEDS ORDERED: LEVA750T9 PO (14:08)
[2018-01-22] MEDS ORDERED: OXYGENDME NAS.CANULA (14:08)
--- NOTE | 2018-01-22 14:10 | HHI.FF ---
Face to Face Verification Diagnosis: (1) COPD (chronic obstructive pulmonary disease) (2) COPD exacerbation (3) Generalized weakness Physical Therapy Order: Evaluate and Treat, Improve ambulation, Strength and gait training Home Health Nursing Order: Signs/symptoms of disease process Oxygen administration education I have seen patient Alanna Isidor on 01/22/18. My clinical findings support the need for the requested home health care services because: Ltd mobility - disease progression Patient has SOB Deconditioned w/ increased weakness Limited ability to care for self High risk of falls Infection w/ risk of complications I certify that my clinical findings support that this patient is homebound because: Hx COPD- exertion dyspnea/weakness Unsteady gait/balance Unsafe to leave home unassisted Unable to use public transportation Mitchell Butts MD Jan 22, 2018 14:10
--- NOTE | 2018-01-22 14:15 | HHI.DS ---
Discharge Summary Admission Date Jan 18, 2018 at 15:39 Discharge Date: Jan 22, 2018 Admitting Diagnosis (1) Sepsis ICD Code: A41.9 - Sepsis, unspecified organism Diagnosis: Principal (2) Acute respiratory failure with hypoxia and hypercapnia ICD Code: J96.01 - Acute respiratory failure with hypoxia; J96.02 - Acute respiratory failure with hypercapnia Diagnosis: Principal (3) Pneumonia ICD Code: J18.9 - Pneumonia, unspecified organism Diagnosis: Principal Status: Acute (4) COPD exacerbation ICD Code: J44.1 - Chronic obstructive pulmonary disease with (acute) exacerbation Diagnosis: Principal (5) COPD (chronic obstructive pulmonary disease) ICD Code: J44.9 - Chronic obstructive pulmonary disease, unspecified Diagnosis: Secondary Procedures None. Brief History - From Admission This is a pleasant 39 y/o Female who came to ER with cough for two days before coming to ER, shortness of breath, has Tobacco dependence Lethargic on admission as per ER physician, She states she just does not feel very well. Nothing as far as sputum production, no abdominal pain no nausea vomiting no chest pain. Symptoms moderate, for the past 48 hours , gradually worsening, at this time seen in Emergency room, the patient is alert and oriented, Unfortunately was not performed yet a drug screen was asked and also discussed with ER physician he asked for CT brain and following at this time talking in full sentences asking for full diet will start regular diet. CBC/BMP: 01/19/18 0650 01/19/18 0650 PE at Discharge GENERAL: Alert, Oriented x 3, NAD. SKIN: Warm and dry. HEAD: Normocephalic. EYES: No scleral icterus. No injection or drainage. NECK: Supple, trachea midline. No JVD or lymphadenopathy. CARDIOVASCULAR: Regular rate and rhythm without murmurs, gallops, or rubs. RESPIRATORY: Moderate air entry, mild wheezes, coarse breath sounds. No accessory muscle use. GASTROINTESTINAL: Abdomen soft, non-tender, nondistended. MUSCULOSKELETAL: No cyanosis, or edema. BACK: Nontender without obvious deformity. No CVA tenderness. Hospital Course Mrs. Isidro is a 39-year-old female. She was admitted secondary to pneumonia with sepsis. This came in addition to an underlying COPD and she has a COPD exacerbation secondary to this. Sepsis has resolved. She is on antibiotics will continue this at discharge. Generalized weakness was also present in ambulation has been a problem in the beginning. Hypoxia is persisting. She is ambulating better at this point. She will need oxygen at discharge. Medically stable for discharge home with oxygen and physical therapy, today. Pt Condition on Discharge: Stable Discharge Disposition: Disch w/ Home Health Serv Discharge Time: <= 30 minutes Discharge Instructions DIET: Follow Instructions for: As Tolerated, No Restrictions Activities you can perform: Regular-No Restrictions Follow up Referrals: PCP Follow-up - 2 Weeks Pulmonology - 2 Weeks New Medications: Albuterol 18 GM Inh (Ventolin Hfa 18 GM Inh) 90 Mcg/Act Aer 2 PUFF INH Q4H PRN for SHORTNESS OF BREATH, #1 INHALER 0 Refills Lactobacillus Acidophilus (Lactobacillus Acidophilus) 1 Billion Cell Tab 1 TAB PO TIDAC for Nutritional Supplement, #30 TAB 0 Refills Oxygen (O2) (Oxygen (O2)) Device LITER GIGI.CANULA CONTINUOUS for Prevent Hypoxemia, #2 Oxygen Concentrator Portable Gaseous 2 L/min via Nasal Canula Continuous For 99 months Levofloxacin (Levaquin) 750 Mg Tablet 750 MG PO DAILY for Infection, #7 TAB [Budeson-Formot 160-4.5 Mcg Inh] () 60 PUFF AERO 1 PUFF INH Q12HR for Inflammation, #1 UNIT Continued Medications: Gabapentin (Gabapentin) 100 Mg Cap 200 MG PO TID, #90 CAP 0 Refills Oxycodone-Acetaminophen (Percocet) 10-325 mg Tab 1 TAB PO DAILY PRN for PAIN, TAB 0 Refills Mitchell Butts MD Jan 22, 2018 14:15
[2018-01-22] MEDS: ENOXAPARIN SODIUM 40 MG/0.4 ML SYRINGE SQ SCH (17:00)
--- NOTE | 2018-01-25 16:22 | HHI.FF ---
Face to Face Verification Diagnosis: (1) COPD exacerbation (2) COPD (chronic obstructive pulmonary disease) (3) Generalized weakness (4) Acute respiratory failure with hypoxia and hypercapnia Home Health Nursing Order: Oxygen administration education Nursing assessment with vital signs I have seen patient Alanna Isidro on 01/25/18. My clinical findings support the need for the requested home health care services because: Patient has SOB Deconditioned w/ increased weakness Limited ability to care for self High risk of falls Infection w/ risk of complications I certify that my clinical findings support that this patient is homebound because: Hx COPD- exertion dyspnea/weakness Unsafe to leave home unassisted Unable to use public transportation Mitchell Butts MD Jan 25, 2018 16:22
== END 2018-01-22 20:00 | disposition home health service (06) | DRG 871 ==
LOC: NEPC 11:10 → NEDA 15:39 → N04B 18:24
PROVIDERS: ADMIT Hospitalist; ATTEND Hospitalist
PROC: 3E0F7GC Introduction of Other Therapeutic Substance into Respiratory Tract, Via Natural or Artificial Opening (ICD-10-PCS; principal; 2018-01-18)
DX: A41.9 Sepsis, unspecified organism (principal); J18.9 Pneumonia, unspecified organism; J96.01 Acute respiratory failure with hypoxia; J96.02 Acute respiratory failure with hypercapnia; G93.41 Metabolic encephalopathy; J44.0 Chronic obstructive pulmonary disease with (acute) lower respiratory infection; J44.1 Chronic obstructive pulmonary disease with (acute) exacerbation; Z86.718 Personal history of other venous thrombosis and embolism; G40.909 Epilepsy, unspecified, not intractable, without status epilepticus; F17.200 Nicotine dependence, unspecified, uncomplicated; K70.30 Alcoholic cirrhosis of liver without ascites; F10.21 Alcohol dependence, in remission; Z59.0 Homelessness
CPT/HCPCS: 70450; 71046; 71275; 80048; 80061; 80307; 82140; 82550; 82607; 82746; 82805; 83036; 83605; 83735; 83880; 84439; 84443; 84484; 85025; 85610; 85730; 87040; 87205; 87804; 93005; 94150; 94618; 94640; 94664; 96365; 96367; J0456; J0696; J1650; J2405; J2920; J7030; J7050; J7512; Q9967

== ENCOUNTER 2018-02-19 19:05 | Emergency (ER) | payer MEDICAID ==
[~2018-02-19] VITALS: Ht 162.6 cm; Wt 57.0 kg
[~2018-02-19 19:05] MED LIST changes: +Budeson-Formot 160-4.5 Mcg Inh INH; +GABA100C4 PO; +LACTTAB8 PO; +LEVA750T9 PO; -MULT-65 PO; -NAPR500 PO; +OXYGENDME NAS.CANULA; +PERC10TA27 PO; -POTA20TA5 PO; -TRAM50 PO; +VENTAER INH
[2018-02-19 19:16] VITALS: BP 126/78; PULSE 80; RESP 16; TEMP 98; O2SAT 96
[2018-02-19] MEDS ORDERED: SODIUM CHLOR 0.9% 1000 ML INJ 1,000 ML IV ONE ×2 (19:37→21:30)
[2018-02-19] MEDS ORDERED: SODIUM CHLORIDE 0.9% FLUSH 10 ML FLUSH IVF PRN (19:45)
--- NOTE | 2018-02-19 19:49 | PD ---
HPI Chief Complaint: Fall Time Seen by Provider: 19:24 Travel History International Travel<30 days: No Contact w/Intl Traveler<30days: No Traveled to known affect area: No History of Present Illness HPI Patient is a 47-year-old female brought into the emergency department for evaluation after being found on the ground outside of the home. Mother states she went over to check on her and noticed she was on the ground 5 steps down from her front door. There was a shoe on the top of the landing another she was on the ground near the patient. Patient has a history of seizure disorder, mother states she fell on Thursday of this week as well. Patient appears postictal on arrival, H&P from her is limited due to this. Patient has a history of alcoholism, seizure disorder, COPD. She reports that she has been clean for 120 days. Patient was taking gabapentin for her seizures, she has been out of this medication for an unknown amount of time. Patient presented to the emergency department on a backboard and in a cervical collar. She is complaining of neck pain, she is not quantifying her pain at this time. PFSH Past Medical History Cirrhosis: Yes COPD: Yes Deep Vein Thrombosis: Yes (left upper arm) Immunizations Current: Yes Seizures: Yes Tetanus Vaccination: > 5 Years Influenza Vaccination: No ?: Not Menopausal: Yes : 1 Para: 1 Miscarriage: 0 : 0 Past Surgical History Section: Yes Other Surgery: Yes () Social History Alcohol Use: Yes (HX OF ETOH ABUSE, DENIES CURRENT) Tobacco Use: Yes (1/2 PPD) Substance Use: No Allergies-Medications (Allergen,Severity, Reaction): Coded Allergies: latex (Verified Allergy, Intermediate, Ulcers, 02/19/18) blisters Reported Meds & Prescriptions Reported Meds & Active Scripts Active Oxygen (O2) Device Liter GIGI.CANULA CONTINUOUS Oxygen Concentrator Portable Gaseous 2 L/min via Nasal Canula Continuous For 99 months Lactobacillus Acidophilus 1 Billion Cell Tab 1 Tab PO TIDAC Ventolin Hfa 18 GM Inh (Albuterol Sulfate) 90 Mcg/Act Aer 2 Puff INH Q4H PRN [Budeson-Formot 160-4.5 Mcg Inh] 60 PUFF Aero 1 Puff INH Q12HR Reported Gabapentin 100 Mg Cap 200 Mg PO TID Review of Systems ROS Limitations: Clinical Condition Except as stated in HPI: all other systems reviewed are Neg HENT: Positive: Neck Pain Neurologic: Positive: Seizures Physical Exam Narrative GENERAL: Well-developed, well-nourished, alert female. Appears older than stated age. No acute distress. SKIN: Warm and dry. Healing scabs to bilateral arms. HEAD: Atraumatic. Normocephalic. EYES: Pupils equal and round. No scleral icterus. No injection or drainage. Extraocular movements are intact. ENT: No nasal bleeding or discharge. Mucous membranes pink and moist. NECK: Trachea midline. No JVD. CARDIOVASCULAR: Regular rate and rhythm. RESPIRATORY: No accessory muscle use. Clear to auscultation. Breath sounds equal bilaterally. GASTROINTESTINAL: Abdomen soft, non-tender, nondistended. Hepatic and splenic margins not palpable. MUSCULOSKELETAL: Extremities without clubbing, cyanosis, or edema. No obvious deformities. NEUROLOGICAL: Awake and alert. No obvious cranial nerve deficits. Motor grossly within normal limits. Five out of 5 muscle strength in the arms and legs. Normal speech. GCS of 13 on arrival. PSYCHIATRIC: Flat mood and affect; insight and judgment normal. Data Data Last Documented VS Vital Signs Date Time Temp Pulse Resp B/P (MAP) Pulse Ox O2 Delivery O2 Flow Rate FiO2 02/20/18 04:58 89 18 123/70 (87) 99 Room Air 02/19/18 19:54 2.00 02/19/18 19:16 98.0 Orders Orders Complete Blood Count With Diff (02/19/18 19:37) Alcohol (Ethanol) (02/19/18 19:37) Drug Screen, Random Urine (02/19/18 19:37) Ct Brain W/O Iv Contrast(Rout) (02/19/18 ) Blood Glucose (02/19/18 19:37) Ecg Monitoring (02/19/18 19:37) Iv Access Insert/Monitor (02/19/18 19:37) Oximetry (02/19/18 19:37) Oxygen Administration (02/19/18 19:37) Cath For Specimen (02/19/18 19:37) Comprehensive Metabolic Panel (02/19/18 19:37) Sodium Chlor 0.9% 1000 Ml Inj (Ns 1000 M (02/19/18 19:37) Sodium Chloride 0.9% Flush (Ns Flush) (02/19/18 19:45) Urinalysis - C+S If Indicated (02/19/18 19:37) Ammonia (02/19/18 19:37) Ct Cerv Spine W/O Contrast (02/19/18 ) Remove Cervical Collar (02/19/18 20:58) Potassium Chlor 20 Meq Premix (Kcl 20 Me (02/19/18 21:30) Sodium Chlor 0.9% 1000 Ml Inj (Ns 1000 M (02/19/18 21:30) Lactulose Liq (Lactulose Liq) (02/19/18 21:30) Potassium Chloride (Kcl) (02/19/18 21:45) Urine Culture (02/20/18 05:05) Ed Discharge Order (02/20/18 05:47) Labs Laboratory Tests Test 02/19/18 19:30 02/20/18 05:05 White Blood Count 8.9 TH/MM3 Red Blood Count 4.00 MIL/MM3 Hemoglobin 14.1 GM/DL Hematocrit 41.1 % Mean Corpuscular Volume 102.9 FL Mean Corpuscular Hemoglobin 35.2 PG Mean Corpuscular Hemoglobin Concent 34.3 % Red Cell Distribution Width 16.7 % Platelet Count 184 TH/MM3 Mean Platelet Volume 7.8 FL Neutrophils (%) (Auto) 51.9 % Lymphocytes (%) (Auto) 34.4 % Monocytes (%) (Auto) 9.3 % Eosinophils (%) (Auto) 3.7 % Basophils (%) (Auto) 0.7 % Neutrophils # (Auto) 4.6 TH/MM3 Lymphocytes # (Auto) 3.1 TH/MM3 Monocytes # (Auto) 0.8 TH/MM3 Eosinophils # (Auto) 0.3 TH/MM3 Basophils # (Auto) 0.1 TH/MM3 CBC Comment DIFF FINAL Differential Comment Blood Urea Nitrogen 7 MG/DL Creatinine 0.51 MG/DL Random Glucose 90 MG/DL Total Protein 7.7 GM/DL Albumin 3.4 GM/DL Calcium Level 8.4 MG/DL Alkaline Phosphatase 196 U/L Aspartate Amino Transf (AST/SGOT) 91 U/L Alanine Aminotransferase (ALT/SGPT) 59 U/L Total Bilirubin 0.3 MG/DL Sodium Level 145 MEQ/L Potassium Level 3.0 MEQ/L Chloride Level 104 MEQ/L Carbon Dioxide Level 30.7 MEQ/L Anion Gap 10 MEQ/L Estimat Glomerular Filtration Rate 129 ML/MIN Ammonia 54 MCMOL/L Ethyl Alcohol Level 390 MG/DL Urine Color YELLOW Urine Turbidity Turbid Urine pH 5.5 Urine Specific Reva 1.022 Urine Protein 100 mg/dL Urine Glucose (UA) NEG mg/dL Urine Ketones NEG mg/dL Urine Occult Blood MOD Urine Nitrite NEG Urine Bilirubin NEG Urine Urobilinogen 0.2 MG/DL Urine Leukocyte Esterase NEG Urine RBC 4 /hpf Urine WBC 10 /hpf Urine Squamous Epithelial Cells 14 /hpf Urine Bacteria MANY /hpf Urine Hyaline Casts 6 /lpf Urine Mucus MANY /lpf Microscopic Urinalysis Comment CATH-CULTURE IND Urine Opiates Screen NEG Urine Barbiturates Screen NEG Urine Amphetamines Screen NEG Urine Benzodiazepines Screen POS Urine Cocaine Screen NEG Urine Cannabinoids Screen POS MDM Medical Decision Making Medical Screen Exam Complete: Yes Emergency Medical Condition: Yes Interpretation(s) Vital Signs Date Time Temp Pulse Resp B/P (MAP) Pulse Ox O2 Delivery O2 Flow Rate FiO2 02/19/18 19:54 98 Nasal Cannula 2.00 02/19/18 19:54 16 98 Nasal Cannula 2.00 02/19/18 19:16 98.0 80 16 126/78 (94) 96 Laboratory Tests Test 02/19/18 19:30 White Blood Count 8.9 TH/MM3 Red Blood Count 4.00 MIL/MM3 Hemoglobin 14.1 GM/DL Hematocrit 41.1 % Mean Corpuscular Volume 102.9 FL Mean Corpuscular Hemoglobin 35.2 PG Mean Corpuscular Hemoglobin Concent 34.3 % Red Cell Distribution Width 16.7 % Platelet Count 184 TH/MM3 Mean Platelet Volume 7.8 FL Neutrophils (%) (Auto) 51.9 % Lymphocytes (%) (Auto) 34.4 % Monocytes (%) (Auto) 9.3 % Eosinophils (%) (Auto) 3.7 % Basophils (%) (Auto) 0.7 % Neutrophils # (Auto) 4.6 TH/MM3 Lymphocytes # (Auto) 3.1 TH/MM3 Monocytes # (Auto) 0.8 TH/MM3 Eosinophils # (Auto) 0.3 TH/MM3 Basophils # (Auto) 0.1 TH/MM3 CBC Comment DIFF FINAL Differential Comment Blood Urea Nitrogen 7 MG/DL Creatinine 0.51 MG/DL Random Glucose 90 MG/DL Total Protein 7.7 GM/DL Albumin 3.4 GM/DL Calcium Level 8.4 MG/DL Alkaline Phosphatase 196 U/L Aspartate Amino Transf (AST/SGOT) 91 U/L Alanine Aminotransferase (ALT/SGPT) 59 U/L Total Bilirubin 0.3 MG/DL Sodium Level 145 MEQ/L Potassium Level 3.0 MEQ/L Chloride Level 104 MEQ/L Carbon Dioxide Level 30.7 MEQ/L Anion Gap 10 MEQ/L Estimat Glomerular Filtration Rate 129 ML/MIN Ammonia 54 MCMOL/L Ethyl Alcohol Level 390 MG/DL Last Impressions Head CT 02/19/18 0000 Signed Impressions: Service Date/Time: Monday, February 19, 2018 20:15 - CONCLUSION: Normal examination for a patient of this age. No significant change has occurred. Evan Foley MD Cervical Spine CT 02/19/18 0000 Signed Impressions: Service Date/Time: Monday, February 19, 2018 20:15 - CONCLUSION: 1. No acute findings. Mild degenerative disc disease. 12 mm right lobe thyroid nodule noted incidentally. Evan Foley MD Differential Diagnosis Seizure versus metabolic abnormality versus intoxication versus intracranial hemorrhage versus other Narrative Course Patient is a 47-year-old female presenting to emergency department after being found at the bottom up 5 steps outside of her home. Patient's vital signs are stable, labs and imaging ordered and pending. Patient does smell of alcohol but continues to deny any use. IV fluids ordered as well. Patient was placed on monitor tech, continuous pulse oximetry. He is on 2 L of oxygen via nasal cannula. Patient has a history of COPD and has home oxygen. CBC with no acute findings Chemistry with potassium 3.0, AST and AST 91/59, alkaline phosphatase 196, ammonia 64. Alcohol level is 390. Patient was given an additional liter of IV fluids as well as 30 mL's of lactulose orally. Potassium was replaced IV and orally. Patient will be kept in the emergency department until her mother can pick her up. Case is discussed with my attending physician. Patient was strongly advised to avoid any further alcohol use. She is encouraged to continue AA meetings, she was advised to follow-up with Dmitriy Mireles. It was questioned whether or not patient had a seizure which is why she fell however with a blood alcohol level of 390 the fall could be directly related to being intoxicated. CT scan of the brain and cervical spine are unremarkable. Urinalysis with reflex culture pending. Patient will be treated empirically with Keflex. Patient was kept in the emergency room overnight. She woke up in the morning was able to provide a urine sample, she demonstrated safe ambulation. Patient's mother is here at 0550 to pick her up. Diagnosis Primary Impression: Acute alcohol intoxication Qualified Codes: F10.929 - Alcohol use, unspecified with intoxication, unspecified Additional Impressions: Hypokalemia Transaminitis Hyperammonemia UTI (urinary tract infection) Qualified Codes: N39.0 - Urinary tract infection, site not specified Referrals: [facility] Patient Instructions: Alcohol Intoxication (ED), General Instructions Additional Instructions: Avoid alcohol intake Follow-up with Dmitriy Mireles Continue home medications as prescribed Return to emergency department for any new or worsening symptoms Med/Other Pt SpecificInfo: Prescription(s) given, No Change to Meds Scripts Cephalexin (Keflex) 500 Mg Cap 500 MG PO Q12H for Infection for 7 Days, #14 CAP 0 Refills Prov: Arin Almazan 02/20/18 Disposition: 01 DISCHARGE HOME Condition: Stable Arin Almazan February 19, 2018 19:49
[2018-02-19 19:54] VITALS: RESP 16; O2SAT 98
[2018-02-19 20:19] LABS: AUTOMATED NEUTROPHIL # 4.6 TH/MM3 (1.8-7.7); BASOPHIL # 0.1 TH/MM3 (0-0.2); BASOPHIL % 0.7 % (0.0-2.0); EOSINOPHIL # 0.3 TH/MM3 (0-0.4); EOSINOPHIL % 3.7 % (0.0-4.0); HEMATOCRIT 41.1 % (35.0-46.0); HEMOGLOBIN 14.1 GM/DL (11.6-15.3); LYMPH % 34.4 % (9.0-44.0); LYMPHOCYTE # 3.1 TH/MM3 (1.0-4.8); MEAN CELL VOLUME 102.9 FL (80.0-100.0); MEAN CORPUSCULAR HEMOGLOBIN 35.2 PG (27.0-34.0); MEAN CORPUSCULAR HGB CONC 34.3 % (32.0-36.0); MEAN PLATELET VOLUME 7.8 FL (7.0-11.0); MONO % 9.3 % (0.0-8.0); MONOCYTE # 0.8 TH/MM3 (0-0.9); NEUT % 51.9 % (16.0-70.0); PLATELET COUNT 184 TH/MM3 (150-450); RED CELL DISTRIBUTION WIDTH 16.7 % (11.6-17.2); WHITE BLOOD COUNT 8.9 TH/MM3 (4.0-11.0)
--- NOTE | 2018-02-19 20:43 | RADRPT ---
EXAM DATE/TIME: 02/19/2018 20:15 [facility] COMPARISON: CT BRAIN W/O CONTRAST, January 18, 2018, 15:31. INDICATIONS : Trauma; fall. RADIATION DOSE: 56.35 CTDIvol (mGy) ; Patient motion MEDICAL HISTORY : Cirrhosis. Seizures. Deep venous thrombosis.ETOH SURGICAL HISTORY : None. ENCOUNTER: Initial ACUITY: 1 day PAIN SCALE: 5/10 LOCATION: Bilateral cranial TECHNIQUE: Multiple contiguous axial images were obtained of the head. Using automated exposure control and adj ustment of the mA and/or kV according to patient size, radiation dose was kept as low as reasonably a chievable to obtain optimal diagnostic quality images. DICOM format image data is available electro nically for review and comparison. FINDINGS: CEREBRUM: The ventricles are normal for age. No evidence of midline shift, mass lesion, hemorrhage or acute in farction. No extra-axial fluid collections are seen. POSTERIOR FOSSA: The cerebellum and brainstem are intact. The 4th ventricle is midline. The cerebellopontine angle i s unremarkable. EXTRACRANIAL: The visualized portion of the orbits is intact. SKULL: The calvaria is intact. No evidence of skull fracture. CONCLUSION: Normal examination for a patient of this age. No significant change has occurred. Evan Foley MD on February 19, 2018 at 20:36 Board Certified Radiologist. This report was verified electronically.
[2018-02-19 20:45] LABS: ALBUMIN 3.4 GM/DL (3.4-5.0); ALT (GPT) 59 U/L (10-53); AST (GOT) 91 U/L (15-37); BICARBONATE 30.7 MEQ/L (21.0-32.0); BLOOD UREA NITROGEN 7 MG/DL (7-18); CALCIUM 8.4 MG/DL (8.5-10.1); CHLORIDE 104 MEQ/L (98-107); CREATININE 0.51 MG/DL (0.50-1.00); GLOMERULAR FILTRATION RATE 129 ML/MIN (>89); GLUCOSE,RANDOM 90 MG/DL (74-106); SODIUM (NA) 145 MEQ/L (136-145)
--- NOTE | 2018-02-19 20:48 | RADRPT ---
EXAM DATE/TIME: 02/19/2018 20:15 [facility] COMPARISON: No previous studies available for comparison. INDICATIONS : Trauma; fall. RADIATION DOSE: 21.05 CTDIvol (mGy) MEDICAL HISTORY : Seizures. Deep venous thrombosis. Cirrhosis.ETOH SURGICAL HISTORY : None. ENCOUNTER: Initial ACUITY: 1 day PAIN SCALE: 5/10 LOCATION: neck TECHNIQUE: Volumetric scanning of the cervical spine was performed. Multiplanar reconstructions in the sagittal, coronal and oblique axial planes were performed. Using automated exposure control and adjustment o f the mA and/or kV according to patient size, radiation dose was kept as low as reasonably achievable to obtain optimal diagnostic quality images. DICOM format image data is available electronically f or review and comparison. FINDINGS: VERTEBRAE: Normal vertebral body height. ALIGNMENT: No evidence of subluxation. C2-C3: The bony spinal canal is normal in size. No evidence of disc bulge or herniation. The neural forami na are bilaterally patent. C3-C4: The bony spinal canal is normal in size. No evidence of disc bulge or herniation. The neural forami na are bilaterally patent. C4-C5: The bony spinal canal is normal in size. No evidence of disc bulge or herniation. The neural forami na are bilaterally patent. C5-C6: The bony spinal canal is normal in size. No evidence of disc bulge or herniation. The neural forami na are bilaterally patent. C6-C7: The bony spinal canal is normal in size. No evidence of disc bulge or herniation. The neural forami na are bilaterally patent. C7-T1: The bony spinal canal is normal in size. No evidence of disc bulge or herniation. The neural forami na are bilaterally patent. CONCLUSION: 1. No acute findings. Mild degenerative disc disease. 12 mm right lobe thyroid nodule noted incidenta lly. Evan Foley MD on February 19, 2018 at 20:42 Board Certified Radiologist. This report was verified electronically.
[2018-02-19 20:49] LABS: ALKALINE PHOSPHATASE 196 U/L (45-117); TOTAL BILIRUBIN ADULT 0.3 MG/DL (0.2-1.0); TOTAL PROTEIN 7.7 GM/DL (6.4-8.2)
[2018-02-19] MEDS ORDERED: POTASSIUM CHLOR 20 MEQ PREMIX 100 ML IV ONE (21:30)
[2018-02-19] MEDS ORDERED: LACTULOSE SYRUP 20 GM/30 ML CUP PO ONE (21:30)
[2018-02-19] MEDS ORDERED: POTASSIUM CHLORIDE 20 MEQ CONTROLLED RELEASE TAB PO ONE (21:45)
--- NOTE | 2018-02-20 00:01 | PD ---
Data Data Last Documented VS Vital Signs Date Time Temp Pulse Resp B/P (MAP) Pulse Ox O2 Delivery O2 Flow Rate FiO2 02/19/18 19:54 98 Nasal Cannula 2.00 02/19/18 19:54 16 02/19/18 19:16 98.0 80 126/78 (94) Orders Orders Complete Blood Count With Diff (02/19/18 19:37) Alcohol (Ethanol) (02/19/18 19:37) Drug Screen, Random Urine (02/19/18 19:37) Ct Brain W/O Iv Contrast(Rout) (02/19/18 ) Blood Glucose (02/19/18 19:37) Ecg Monitoring (02/19/18 19:37) Iv Access Insert/Monitor (02/19/18 19:37) Oximetry (02/19/18 19:37) Oxygen Administration (02/19/18 19:37) Cath For Specimen (02/19/18 19:37) Comprehensive Metabolic Panel (02/19/18 19:37) Sodium Chlor 0.9% 1000 Ml Inj (Ns 1000 M (02/19/18 19:37) Sodium Chloride 0.9% Flush (Ns Flush) (02/19/18 19:45) Urinalysis - C+S If Indicated (02/19/18 19:37) Ammonia (02/19/18 19:37) Ct Cerv Spine W/O Contrast (02/19/18 ) Remove Cervical Collar (02/19/18 20:58) Potassium Chlor 20 Meq Premix (Kcl 20 Me (02/19/18 21:30) Sodium Chlor 0.9% 1000 Ml Inj (Ns 1000 M (02/19/18 21:30) Lactulose Liq (Lactulose Liq) (02/19/18 21:30) Potassium Chloride (Kcl) (02/19/18 21:45) Labs Laboratory Tests Test 02/19/18 19:30 White Blood Count 8.9 TH/MM3 Red Blood Count 4.00 MIL/MM3 Hemoglobin 14.1 GM/DL Hematocrit 41.1 % Mean Corpuscular Volume 102.9 FL Mean Corpuscular Hemoglobin 35.2 PG Mean Corpuscular Hemoglobin Concent 34.3 % Red Cell Distribution Width 16.7 % Platelet Count 184 TH/MM3 Mean Platelet Volume 7.8 FL Neutrophils (%) (Auto) 51.9 % Lymphocytes (%) (Auto) 34.4 % Monocytes (%) (Auto) 9.3 % Eosinophils (%) (Auto) 3.7 % Basophils (%) (Auto) 0.7 % Neutrophils # (Auto) 4.6 TH/MM3 Lymphocytes # (Auto) 3.1 TH/MM3 Monocytes # (Auto) 0.8 TH/MM3 Eosinophils # (Auto) 0.3 TH/MM3 Basophils # (Auto) 0.1 TH/MM3 CBC Comment DIFF FINAL Differential Comment Blood Urea Nitrogen 7 MG/DL Creatinine 0.51 MG/DL Random Glucose 90 MG/DL Total Protein 7.7 GM/DL Albumin 3.4 GM/DL Calcium Level 8.4 MG/DL Alkaline Phosphatase 196 U/L Aspartate Amino Transf (AST/SGOT) 91 U/L Alanine Aminotransferase (ALT/SGPT) 59 U/L Total Bilirubin 0.3 MG/DL Sodium Level 145 MEQ/L Potassium Level 3.0 MEQ/L Chloride Level 104 MEQ/L Carbon Dioxide Level 30.7 MEQ/L Anion Gap 10 MEQ/L Estimat Glomerular Filtration Rate 129 ML/MIN Ammonia 54 MCMOL/L Ethyl Alcohol Level 390 MG/DL MDM Supervised Visit with MARISEL: Yes Narrative Course The history, exam, and medical decision-making in the associated midlevel provider note were completed with my assistance. I reviewed and agree with the findings presented. I attest that I had a [id number] encounter with the patient on the same day, and personally performed and documented my assessment and findings in the medical record. *My assessment and Findings: This is a 47-year-old female who presents to the emergency department having had a fall in the setting of intoxication. CT is reassuring. Labs demonstrate hyperammonemia of uncertain consequence. Patient otherwise appears stable and will be observed until clinically sober and can follow-up as an outpatient at [facility]. Diagnosis Primary Impression: Acute alcohol intoxication Qualified Codes: F10.929 - Alcohol use, unspecified with intoxication, unspecified Additional Impressions: Transaminitis Hyperammonemia Hypokalemia Referrals: [facility] day Patient Instructions: General Instructions, Alcohol Intoxication (ED) Additional Instruction: Avoid alcohol intake Follow-up with Dmitriy Mireles Continue home medications as prescribed Return to emergency department for any new or worsening symptoms Disposition: DISCHARGE HOME Condition: Stable Adelaide Parada MD February 20, 2018 00:01
[2018-02-20 04:58] VITALS: BP 123/70; PULSE 89; RESP 18; O2SAT 99
[2018-02-20 05:26] LABS: BILIRUBIN, URINE NEG (NEG); BLOOD, URINE MOD (NEG); GLUCOSE,URINE NEG (NEG); KETONE, URINE NEG (NEG); NITRITE,URINE NEG (NEG); PH, URINE 5.5 (5.0-8.5); URINE COLOR YELLOW (YELLW/STRAW); URINE LEUKOCYTE ESTERASE NEG (NEG)
[2018-02-20 05:30] LABS: BACTERIA, URINE MANY /hpf; HYALINE CAST, URINE 6 /lpf (RARE); MUCUS URINE MANY /lpf (OCC); SQUAMOUS EPITHELIAL CELL URINE 14 /hpf (0-5)
[2018-02-20] MEDS ORDERED: CEPH-460 PO (05:48)
== END 2018-02-20 06:01 | disposition home or self-care (01) ==
LOC: NEPD 19:05
DX: F10.129 Alcohol abuse with intoxication, unspecified (principal); R74.0 Nonspecific elevation of levels of transaminase and lactic acid dehydrogenase [LDH]; E72.20 Disorder of urea cycle metabolism, unspecified; E87.6 Hypokalemia; E04.1 Nontoxic single thyroid nodule; M50.30 Other cervical disc degeneration, unspecified cervical region; F19.90 Other psychoactive substance use, unspecified, uncomplicated; F12.90 Cannabis use, unspecified, uncomplicated; G40.909 Epilepsy, unspecified, not intractable, without status epilepticus
CPT/HCPCS: 70450; 72125; 80053; 80307; 81001; 82140; 85025; 87086; 96361; 96365; 96366; 99284; J3480; J7030

== ENCOUNTER → 2018-03-11 | Outpatient (CLI) | payer MEDICAID ==
[~2018-03-11] MED LIST changes: +CEPH-460 PO; -LEVA750T9 PO; -PERC10TA27 PO
--- NOTE | 2018-03-11 10:23 | RADRPT ---
EXAM DATE: 03/11/2018 10:09 AM EDT AGE/SEX: 47 years / Female INDICATIONS: Short of breath. On oxygen at night. CLINICAL DATA: This is the patient's initial encounter. Patient reports that signs and symptoms have been present for 2 weeks and indicates a pain score of 0/10. MEDICAL/SURGICAL HISTORY: Chronic obstructive pulmonary disease. Hypertension. Diabetes. Smo ker. Asthma. None. [place] [facility] [place] [facility] [place]. . FINDINGS: No significant focal pleural or parenchymal opacities. Cardiomediastinal contours are within normal l imits. Bony thorax is intact. CONCLUSION: 1. No acute cardiopulmonary disease. Electronically signed by: Rd Singh MD 03/11/2018 10:22 AM EDT
== END ==
LOC: HRSP 09:39
PROVIDERS: ATTEND Internal Medicine Sleep Medicine
DX: R06.89 Other abnormalities of breathing (principal)
CPT/HCPCS: 36600; 71046; 82805; 94060; 94726; 94729